=== PATIENT | female | born 1960 | race Caucasian/White ===

== ENCOUNTER 2021-08-03 15:29 | Outpatient (CLI) | payer MEDICARE, MEDICAID, SELFPAY ==
--- NOTE | 2021-08-03 15:47 | XRR_ITS ---
PROCEDURE INFORMATION: Exam: XR Right Shoulder Exam date and time: 08/03/2021 3:47 PM Age: 60 years old Clinical indication: Pain; Shoulder; Right; Patient HX: No known injury; Additional info: Chronic right shoulder pain TECHNIQUE: Imaging protocol: XR Right shoulder. Views: 2 or more views. COMPARISON: CR Chest 1 [place] [id number] 05/24/2018 12:49 AM FINDINGS: Bones/joints: Osseous structures are intact. Negative for fracture. Joint spaces are preserved. Soft tissues: Normal. XR/XR shoulder RT min 2V* [id number] IMPRESSION: Unremarkable radiographs of the right shoulder.
== END 2021-08-03 15:30 | disposition home or self-care (01) ==
PROVIDERS: PCP Family Medicine; Visit Provider Family Medicine
DX: M79.601 Pain in right arm (principal)
CPT/HCPCS: 73030

== ENCOUNTER 2021-08-19 08:52 | Outpatient (CLI) | payer MEDICARE, MEDICAID, SELFPAY ==
--- NOTE | 2021-08-19 09:14 | MM_ITS ---
WS: [id number] BILATERAL 3D TOMOSYNTHESIS DIGITAL DIAGNOSTIC MAMMOGRAPHY WITH CAD CLINICAL INFORMATION: right breast pain COMPARISON: April 05, 2011 TECHNIQUE: Bilateral CC, MLO, and ML views. FINDINGS: Scattered fibroglandular densities bilaterally. Punctate and lucent centered calcifications. Asymmetr ic density near the 12:00 position only seen on the MLO view compresses out on the spot compression i mages. A few small subareolar ovoid densities similar to previous. Ultrasound RIGHT breast is pending . LEFT breast is unremarkable. ULTRASOUND BREAST RIGHT TECHNIQUE: Ultrasound RIGHT breast focused area of concern. CLINICAL INFORMATION: right breast pain COMPARISON: RIGHT FINDINGS: Ultrasound area of patient concern. RIGHT axilla demonstrates normal lymph nodes. Additional ultrasou nd about the nipple demonstrates incidental simple cyst superior to the nipple measuring 8.1 x 6.9 x 5.5 mm. Adjacent dilated duct with intraductal debris adjacent to the nipple measuring 8.0 x 8.5 x 5. 3 mm. Findings are probably benign. No other abnormalities. MM/[place] [id number] IMPRESSION: BI-RADS: 3-Probably Benign FOLLOW UP: 6 Month Follow-up Recommend 6 month RIGHT diagnostic mammography and ultrasound with specific att ention to the dilated duct with intraductal debris.
== END 2021-08-19 08:53 | disposition home or self-care (01) ==
LOC: RAD 08:53
PROVIDERS: PCP Family Medicine; Visit Provider Family Medicine
DX: N64.4 Mastodynia (principal)
CPT/HCPCS: 76642; 77062

== ENCOUNTER → 2021-08-31 13:59 | Outpatient (BNVA) | payer MEDICARE, MEDICAID, SELFPAY | PROVIDERS: PCP Family Medicine; Visit Provider Family Medicine | DX: M79.601 Pain in right arm (principal); J44.9 Chronic obstructive pulmonary disease, unspecified; E03.9 Hypothyroidism, unspecified; R06.01 Orthopnea; I25.10 Atherosclerotic heart disease of native coronary artery without angina pectoris | CPT/HCPCS: 80053; 80061; 83880; 84443; 85025 ==

== ENCOUNTER → 2021-11-01 11:47 | Outpatient (BNVA) | payer MEDICARE, MEDICAID, SELFPAY | PROVIDERS: PCP Family Medicine; Visit Provider Family Medicine | DX: R06.01 Orthopnea (principal); R60.0 Localized edema | CPT/HCPCS: 80048 ==

== ENCOUNTER 2022-02-24 12:40 | Outpatient (CLI) | payer MEDICARE, MEDICAID, SELFPAY ==
--- NOTE | 2022-02-24 13:06 | MM_ITS ---
WS: [id number] RIGHT 3D TOMOSYNTHESIS DIGITAL MAMMOGRAPHY WITH CAD CLINICAL INFORMATION: abnormal mammogram right breast, 6 MO F/U HISTORY: Six-month Follow-up COMPARISON: August 19, 2021 TECHNIQUE: 3 views of the right breast were obtained. FINDINGS: Scattered fibroglandular densities bilaterally. Punctate and lucent centered calcifications. A few sm all subareolar ovoid densities similar to previous. Ultrasound RIGHT breast is pending. ULTRASOUND BREAST RIGHT TECHNIQUE: Ultrasound right breast focused area of concern. CLINICAL INFORMATION: abnormal mammogram right breast, 6 MO F/U FINDINGS: Ultrasound RIGHT breast at the areola. 7 x 8 x 5 mm cyst posterior to the nipple with dilated ducts i nternal debris but no focal mass. This is stable in appearance since August 19, 2021. Recommend additi onal six-month follow-up to confirm stability. MM/[place] [id number] IMPRESSION: BI-RADS: 3-Probably Benign FOLLOW UP: 6 Month Follow-up Recommend 6 month follow-up RIGHT breast diagnostic mammography and ultrasound to confirm stability.
== END 2022-02-24 12:41 | disposition home or self-care (01) ==
LOC: RAD 12:41
PROVIDERS: PCP Family Medicine; Visit Provider Family Medicine
DX: R92.8 Other abnormal and inconclusive findings on diagnostic imaging of breast (principal)
CPT/HCPCS: 76642; 77061

== ENCOUNTER 2022-03-15 06:50 | Outpatient (CLI) | payer MEDICARE, MEDICAID, SELFPAY ==
--- NOTE | 2022-03-15 | USCV_ITS ---
Flor Du Age: 61 Gender: F : 1960 Exam Date: 03/15/2022 11:12 Ordering Phys: Enid Morocho DO Technologist: Balbir Rosales [place] [facility] [place]: Chronic obstructive pulmonary disease BP: 128 / 76 HR: 68 Rhythm: Sinus Technical Quality: Technically difficult study MEASUREMENTS (Male / Female) Normal Values 2D ECHO LV Diastolic Diameter PLAX 4.2 cm 4.2 - 5.9 / 3.9 - 5.3 cm LV Systolic Diameter PLAX 2.6 cm IVS Diastolic Thickness 1.0 cm 0.6 - 1.0 / 0.6 - 0.9 cm IVS Systolic Thickness 1.4 cm LVPW Diastolic Thickness 0.9 cm 0.6 - 1.0 / 0.6 - 0.9 cm LVPW Systolic Thickness 1.6 cm LVOT Diameter 2.0 cm LV Ejection Fraction 2D Teich 67.2 % LV Ejection Fraction MOD 2C 65.0 % LV Ejection Fraction 2C AL 66.5 % LA Diameter 3.4 cm LA Width 4.0 cm LA Height 4.5 cm RA Width 3.4 cm RA Height 3.7 cm Aorta at Sinotubular Diameter 2.6 cm IVC Diameter 1.7 cm M-MODE Aortic Annulus Diameter 2.5 cm LA Ao Ratio MM 1.5 MV E Point Septal Separation 0.5 cm DOPPLER AV Peak Velocity 125.2 cm/s LVOT Peak Velocity 123.4 cm/s AV Area Cont Eq vti 2.9 cm squared AV Area Cont Eq pk 3.1 cm squared MV Peak Velocity 132.0 cm/s MV Area PHT 5.4 cm squared Mitral E to A Ratio 0.8 MV E' Velocity 50.5 cm/s Mitral E to MV E' Ratio 6.7 Mitral E to LV E' Lateral Ratio 7.0 Mitral E to LV E' Septal Ratio 6.5 Right Atrial Pressure 3.0 mmHg PV Peak Velocity 89.0 cm/s RV Acceleration Time 0.1 s RV Ejection Time 0.3 s RV AcT/ET 0.4 FINDINGS Left Ventricle Normal left ventricular size and systolic function, EF 67 %. No regional wall motion abnormalities. Right Ventricle The right ventricle is normal in size and function. Right Atrium The right atrium is normal in size. Left Atrium The left atrium is normal in size. Mitral Valve Normal gross abnormalities noted Aortic Valve Normal gross abnormalities noted Tricuspid Valve Normal gross abnormalities noted Pulmonic Valve Normal gross abnormalities noted Pericardium Normal pericardium without effusion. Aorta Normal ascending aorta dimension. IVC Normal inferior vena cava. CONCLUSIONS Normal left ventricular size and systolic function, EF 67 %. No regional wall motion abnormalities. Normal chamber sizes. No significant valvular lesions. No intracardiac masses. No pericardial effusion. No similar previous studies are available for comparison Dr Phuc Haque MD [facility] (Electronically Signed) Final Date: 15 March 2022 23:05 S
--- NOTE | 2022-03-15 | ECG_ITS ---
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 Interpretive Statements NAME OF STUDY: LEXISCAN SESTAMIBI STRESS TEST INDICATION: Dyspnea on Exertion PROCEDURE: At the baseline, the blood pressure was 132/65 mmHg with a heart rate of 64 beats per min. The electrocardiogram showed sinus rhythm, normal axis with normal ST and T's. The Lexiscan was infused over a period of 20 seconds. A total of 0.4 milligrams of Lexiscan was infused. The stress phase was continued for a total of 5 minutes. Heart rate at the end of the stress phase was 74 bpm with a blood pressure of 109/59 mmHg. The EKG at the peak infusion revealed sinus rhythm with no significant ST-T wave changes. The study was terminated due to protocol completion. Sestamibi was injected 20 seconds after the Lexiscan infusion. Blood pressure at the end of the recovery phase was 109/59 mmHg with a heart rate of 71 beats per minute. CONCLUSION: 1. Normal EKG response to LexiScan infusion. 2. No LexiScan induced chest pain or cardiac arrhythmia. 3. Normal blood pressure and heart rate response. 4. Sestamibi/sestamibi perfusion scan pending; see separate report. Electronically Signed On 03-16-2022 17:39:09 CDT by Valentine Ram M.D. [id number]
[2022-03-15 07:15] VITALS: BMI 38.4
--- NOTE | 2022-03-15 07:24 | NMCV_ITS ---
NM sirena perf SPECT r/s* [id number] Flor Du Age: 61 Gender: F : 1960 Exam Date: 03/15/2022 07:24 Ordering Phys: Enid Morocho DO Technologist: DEMETRIS Garcia Exam Location: [facility] Indications: SHORTNESS OF BREATH STRESS TEST Please see separate stress test report in [facility] for full findings IMAGE PROTOCOL Rest/Stress 1 Lexiscan Day Radiopharmaceutical Dose (mCi) Administration Site Administered by Rest: Tc-99m 10.7 IV DEMETRIS Trotter Sestamibi Stress:Tc-99m 32.7 IV DEMETRIS Trotter Sestamibi Rest: 15-Mar-2022 60 Discovery 630 Stress: 15-Mar-2022 30 Discovery 630 0.4mg Lexiscan. Images obtained in supine and prone position. SPECT RESULTS Technical Quality: Excellent Raw Data Analysis: Normal Image Corrections: No attenuation or motion correction applied Summed Stress Score: 1 Summed Rest Score: 3 Summed Difference Score: 0 PERFUSION FINDINGS Small sized perfusion abnormality of mild severity of apical septal and apical pantoja on rest with improved tracer uptake on stress images. FUNCTIONAL RESULTS (calculated via Gated SPECT) Stress Image LV EF (%): 76 Stress EDV (mL):82 TID: 1.17 Stress ESV (mL):20 FUNCTIONAL FINDINGS: The left ventricle is normal in size. Transient Ischemia Dilatation of 1.2. There is normal left ventricular systolic function. The left ventricular ejection fraction is normal with a value of 76%. There is normal left ventricular wall thickening. Normal end-diastolic and end-systolic volumes. IMPRESSIONS 1. Myocardial perfusion imaging is normal. Attenuation artifact in apical septal and apical pantoja. 2. Overall left ventricular systolic function is normal without regional wall motion abnormalities, LVEF=76%. 3. EKG portion of the study will be reported separately. Valentine Ram MD (Electronically Signed) Final Date: 18 March 2022 14:19 S
[2022-03-15] MEDS: regadenoson 0.4 Mg/5 ml Syringe IVP (09:24)
[2022-03-15 09:38] VITALS: BP 128/72; PULSE 83
== END 2022-03-15 06:51 | disposition home or self-care (01) ==
LOC: CDL 06:52
PROVIDERS: PCP Family Medicine; Visit Provider Family Medicine
DX: J44.9 Chronic obstructive pulmonary disease, unspecified (principal); R06.09 Other forms of dyspnea; R06.02 Shortness of breath
CPT/HCPCS: 78452; 93017; 93306; A9500; J2785

== ENCOUNTER → 2022-05-26 14:50 | Outpatient (BNVA) | payer MEDICARE, MEDICAID, SELFPAY | PROVIDERS: PCP Family Medicine; Visit Provider Internal Medicine Cardiovascular Disease | DX: R07.89 Other chest pain (principal); R06.00 Dyspnea, unspecified; R60.0 Localized edema; J43.1 Panlobular emphysema; I25.10 Atherosclerotic heart disease of native coronary artery without angina pectoris; F17.210 Nicotine dependence, cigarettes, uncomplicated; R00.0 Tachycardia, unspecified | CPT/HCPCS: 93005; 99205 ==

== ENCOUNTER 2022-05-31 09:48 | Outpatient (CLI) | payer MEDICARE, MEDICAID, SELFPAY ==
[2022-05-31 10:45] LABS: D Dimer 0.48 ug/mIFEU (0-0.59)
[2022-05-31 11:00] LABS: NT Pro B Type Natriuretic Pept 29 pg/mL (0-125)
== END 2022-05-31 09:49 | disposition home or self-care (01) ==
LOC: LAB 09:54
PROVIDERS: PCP Family Medicine; Visit Provider Internal Medicine Cardiovascular Disease
DX: R06.00 Dyspnea, unspecified (principal); R06.02 Shortness of breath
CPT/HCPCS: 36415; 83880; 85378

== ENCOUNTER → 2022-08-04 08:46 | Outpatient (BNVA) | payer MEDICARE, MEDICAID, SELFPAY | PROVIDERS: PCP Family Medicine; Visit Provider Family Medicine | DX: E03.9 Hypothyroidism, unspecified (principal); J43.1 Panlobular emphysema; F17.219 Nicotine dependence, cigarettes, with unspecified nicotine-induced disorders; M79.601 Pain in right arm; R60.0 Localized edema | CPT/HCPCS: 84443 ==

== ENCOUNTER 2022-08-26 08:39 | Outpatient (CLI) | payer MEDICARE, MEDICAID, SELFPAY ==
--- NOTE | 2022-08-26 09:15 | CT_ITS ---
WS: [id number] LDCT LUNG CANCER SCREENING TECHNIQUE: Noncontrast CT of the chest with coronal and sagittal reformatted images. CLINICAL INFORMATION: initial COMPARISON: None. DLP: 80.17 mGy.cm DIvol: Mean CTDIvol: 1.60 (mGy) All CT scans at [facility] use at least one of these dose optimization techniques: automat ed exposure control; mA and/or kV adjustment per patient size (includes targeted exams where dose is matched to clinical indication); or iterative reconstruction. FINDINGS: 5 mm noncalcified nodule RIGHT lower lobe. Noncalcified 6 mm nodule LEFT lower lobe along t he fissure. A few additional tiny subcentimeter nodules. Normal caliber thoracic aorta. Aortic calcification. No mediastinal or hilar lymphadenopathy. Coronar y calcification. No mediastinal or hilar lymphadenopathy. No axillary lymphadenopathy. Cholecystectomy clips. Adrenal glands are normal. CT/CT lung screening [id number] IMPRESSION: LUNG-RADS: 2-Benign Appearance or Behavior FOLLOW UP: 12 Month: Continue annual screening with LDCT
== END 2022-08-26 08:40 | disposition home or self-care (01) ==
LOC: RAD 08:41
PROVIDERS: PCP Family Medicine; Visit Provider Family Medicine
DX: Z12.2 Encounter for screening for malignant neoplasm of respiratory organs (principal); F17.219 Nicotine dependence, cigarettes, with unspecified nicotine-induced disorders; J43.1 Panlobular emphysema
CPT/HCPCS: 71271

== ENCOUNTER → 2022-10-10 10:35 | Outpatient (BNVA) | payer MEDICARE, MEDICAID, SELFPAY | PROVIDERS: PCP Family Medicine; Visit Provider Internal Medicine Pulmonary Disease | DX: J43.1 Panlobular emphysema (principal); F17.219 Nicotine dependence, cigarettes, with unspecified nicotine-induced disorders; Z91.09 Other allergy status, other than to drugs and biological substances; Z79.51 Long term (current) use of inhaled steroids | CPT/HCPCS: 36415; 82785; 85025; 86003; 99204 ==

== ENCOUNTER 2022-12-01 11:19 | Outpatient (CLI) | payer MEDICARE, MEDICAID, SELFPAY ==
--- NOTE | 2022-12-01 11:29 | XR_ITS ---
WS: [id number] XR cervical spine 3V* [id number] REASON FOR EXAM: Fall FINDINGS: Anterior plate and screw fixation of C5-C6 which appear to be fused. Fusion site appears unchanged co mpared to 01/26/2018. Compared to the previous examination of 01/26/2018 there is now 3 mm of anterolisthesis of C3 on C4. Osteophytosis at the narrowed C6-C7 interspace has increased. XR/XR cervical spine 3V* [id number] IMPRESSION: Postoperative cervical spine with interval changes of degenerative spondylosis as above.
== END 2022-12-01 11:20 | disposition home or self-care (01) ==
PROVIDERS: PCP Family Medicine; Visit Provider Nurse Practitioner Family
DX: S19.9XXA Unspecified injury of neck, initial encounter (principal); W19.XXXA Unspecified fall, initial encounter; Z98.1 Arthrodesis status; M47.812 Spondylosis without myelopathy or radiculopathy, cervical region
CPT/HCPCS: 72040

== ENCOUNTER → 2022-12-08 14:56 | Outpatient (BNVA) | payer MEDICARE, MEDICAID, SELFPAY | PROVIDERS: PCP Family Medicine; Visit Provider Internal Medicine Cardiovascular Disease | DX: R07.89 Other chest pain (principal); R06.00 Dyspnea, unspecified; I25.10 Atherosclerotic heart disease of native coronary artery without angina pectoris; J43.1 Panlobular emphysema; R03.0 Elevated blood-pressure reading, without diagnosis of hypertension; F17.210 Nicotine dependence, cigarettes, uncomplicated; Z79.82 Long term (current) use of aspirin | CPT/HCPCS: 99214 ==

== ENCOUNTER → 2022-12-15 11:19 | Outpatient (BNVA) | payer MEDICARE, MEDICAID, SELFPAY | PROVIDERS: PCP Family Medicine; Visit Provider Family Medicine | DX: E03.9 Hypothyroidism, unspecified (principal); I25.10 Atherosclerotic heart disease of native coronary artery without angina pectoris | CPT/HCPCS: 80053; 80061; 84443 ==

== ENCOUNTER 2022-12-17 23:29 | Emergency (ER) | payer MEDICARE, MEDICAID, SELFPAY ==
[2022-12-17 23:41] VITALS: BP 155/91; PULSE 102; RESP 18; TEMP 36.6; O2SAT 96; BMI 36.8
--- NOTE | 2022-12-17 23:55 | W.ED.NAVMDI ---
HPI - Nausea/Vomiting/Diarrhea General: Chief complaint: Nausea/Vomiting/Diarrhea Stated complaint: ABD Pain Time Seen by Provider: 12/17/22 23:54 History of Present Illness: 62-year-old female comes in today with complaints of diarrhea since Monday. Patient reports on Monday she had 2 episodes of emesis and since then she has had diarrhea. Patient does have a history of colon resection due to diverticulitis. Patient reports no significant blood in the stools. Patient reports feeling rundown and dehydrated. Patient reports holding her furosemide since having the diarrhea. Review of Systems General: Reports: 10 or more systems reviewed and unremarkable except in HPI and below GI: Reports: diarrhea PFSH ED PFSH: Medical History ASHD (arteriosclerotic heart disease) CAD (coronary artery disease) COPD (chronic obstructive pulmonary disease) Enrolled in chronic care management GERD (gastroesophageal reflux disease) Hypothyroid Surgical History H/O: hysterectomy History of cholecystectomy History of colon surgery History of foot surgery History of neck surgery Family History Mother CAD (coronary artery disease) VT x 2 Chronic kidney disease (CKD) Cancer Diabetes Stroke Father CAD (coronary artery disease) PCI x 3 Dementia Diabetes Brother Cancer Lung disease Brother Cancer Lung disease Daughter Cancer Denies family history of Clotting disorder Suicide Anesthesia complication Bleeding disorder Social History Smoking and tobacco status: current every day smoker cigarettes Packs smoked per day: 2 Years cigarettes smoked: 50 [ Other cigarette details: Started at age 11.] Alcohol intake: never Substance/Drug Use: current Other substance/drug use details: Gummies Physical Exam Const: COMMON NORMALS: alert HENMT: COMMON NORMALS: normocephalic HEAD & SCALP: normocephalic Neck/C-Spine: COMMON NORMALS: full ROM Chest: COMMONS NORMALS: normal palpation of entire chest wall Cardio: COMMON NORMALS: regular rate and regular rhythm RATE: regular rate RHYTHM: regular rhythm GI: COMMON NORMALS: Soft to palpation AUSCULTATION: Yes normoactive bowel sounds PALPATION: Yes Soft to palpation Extremity: COMMON NORMALS: no pedal edema Neuro: SENSORIUM/ORIENTATION: Yes alert Skin: COMMON NORMALS: turgor normal GENERAL SKIN EXAM: turgor normal Course Vital Signs: Vital signs: Vital Signs Temperature 97.8 F 12/17/22 23:41 Pulse Rate 83 12/18/22 00:10 Respiratory Rate 16 12/18/22 00:10 Blood Pressure 141/71 12/18/22 00:10 Pulse Oximetry 93 12/18/22 00:10 MDM - Nausea/Vomiting/Diarrhea Medical Decision Making Patient comes in today for feeling of malaise and persistent diarrhea for about 5 days. On exam patient bowel sounds are active abdomen soft. Vital signs are normal except for some mild elevation in blood pressure. Patient is afebrile. Differential diagnosis includes viral syndrome, dehydration, electrolyte imbalance, bowel obstruction, abscess. CBC and CMP were unremarkable except for some mild chronic kidney disease. Urinalysis was unremarkable. CT of the abdomen pelvis noted no significant abnormalities. Patient was given 2 tablets of Lomotil to help control her diarrhea. Patient was instructed to drink plenty of fluids and follow-up with primary care. Patient reported understanding and agreed to plan. Lab Data 12/17/22 23:59 12/17/22 23:59 Radiology Impressions Abdomen/Pelvis CT 12/18/22 00:02 IMPRESSION: Negative for acute abdominopelvic pathology. Laboratory Results WBC 9.4 10^3/uL (4.0-10.0) 12/17/22 23:59 RBC 4.24 10^6/uL (4.1-5.3) 12/17/22 23:59 Hgb 11.6 g/dL (11.5-15.3) 12/17/22 23:59 Hct 36.1 % (37.0-47.0) L 12/17/22 23:59 MCV 85.1 fl (81-99) 12/17/22 23:59 MCH 27.4 pg (28.0-34.0) L 12/17/22 23:59 MCHC 32.1 g/dL (30.0-36.0) 12/17/22 23:59 RDW 14.8 % (12.1-15.1) 12/17/22 23:59 Plt Count 346 10^3/cmm (130-400) 12/17/22 23:59 MPV 9.8 fL (7.4-10.4) 12/17/22 23:59 Neut % (Auto) 49.6 % 12/17/22 23:59 Lymph % (Auto) 40.6 % 12/17/22 23:59 Hidalgo % (Auto) 6.9 % 12/17/22 23:59 Eos % (Auto) 2.1 % 12/17/22 23:59 Baso % (Auto) 0.5 % 12/17/22 23:59 Neut # (Auto) 4.67 10^3/uL (1.8-7.7) 12/17/22 23:59 Lymph # (Auto) 3.8 10^3/uL (0.8-4.8) 12/17/22 23:59 Hidalgo # (Auto) 0.7 10^3/uL (0.2-0.9) 12/17/22 23:59 Eos # (Auto) 0.2 10^3/uL (0.0-0.8) 12/17/22 23:59 Baso # (Auto) 0.1 10^3/uL (0.0-0.1) 12/17/22 23:59 Nucleated RBC % (auto) 0 % 12/17/22 23:59 Nucleated RBCs # 0.0 /100WBC 12/17/22 23:59 Sodium 139 mmol/L (136-145) 12/17/22 23:59 Potassium 3.7 mmol/L (3.5-5.1) 12/17/22 23:59 Chloride 106 mmol/L (98-107) 12/17/22 23:59 Carbon Dioxide 22 mmol/L (22-29) 12/17/22 23:59 Anion Gap 14.7 (5-19) 12/17/22 23:59 BUN 19 mg/dL (8-23) 12/17/22 23:59 Creatinine 1.1 mg/dL (0.5-0.9) H 12/17/22 23:59 GFR Calculation 50.3 mL/min (90-130) L 12/17/22 23:59 Glucose 109 mg/dL (65-115) 12/17/22 23:59 Calculated Osmolality 291 mOsm/kg (285-295) 12/17/22 23:59 Calcium 8.9 mg/dL (8.5-10.5) 12/17/22 23:59 Total Bilirubin 0.2 mg/dL (0.15-1.2) 12/17/22 23:59 AST 21 U/L (0-32) 12/17/22 23:59 ALT 26 U/L (0-33) 12/17/22 23:59 Alkaline Phosphatase 135 U/L (35-105) H 12/17/22 23:59 Total Protein 6.9 g/dL (6.6-8.7) 12/17/22 23:59 Albumin 4.1 g/dL (3.5-5.2) 12/17/22 23:59 Globulin 2.8 g/dL (1.3-4.6) 12/17/22 23:59 Lipase 38 U/L (13-60) 12/17/22 23:59 Urine Color Yellow (Yellow) 12/18/22 00:33 Urine Appearance Cloudy (CLEAR) A 12/18/22 00:33 Urine pH 5 (5-7) 12/18/22 00:33 Ur Specific Ballinger 1.015 (1.005-1.030) 12/18/22 00:33 Urine Protein Trace (Negative) 12/18/22 00:33 Urine Glucose (UA) Norm (Normal) 12/18/22 00:33 Urine Ketones Negative (Negative) 12/18/22 00:33 Urine Blood Neg (Negative) 12/18/22 00:33 Urine Nitrate Negative (Negative) 12/18/22 00:33 Urine Bilirubin Neg (Negative) 12/18/22 00:33 Urine Urobilinogen Norm mg/dL (Negative) 12/18/22 00:33 Ur Leukocyte Esterase Trace (Negative) H 12/18/22 00:33 Urine RBC 0-4 /hpf (0-2) H 12/18/22 00:33 Urine WBC 0-4 /hpf (0-5) H 12/18/22 00:33 Ur Squamous Epith Cells 25-40 /hpf (0-5) H 12/18/22 00:33 Amorphous Sediment Not Reportable 12/18/22 00:33 Urine Bacteria 2+ /hpf (NONE) H 12/18/22 00:33 Discharge Plan Discharge Patient Disposition: Home Clinical Impression: Diarrhea in adult patient Condition: Stable Prescriptions: New Lomotil 2.5-0.025 mg tablet 1 tab PO Q8H PRN (Reason: diarrhea) Qty: 7 0RF No Action albuterol sulfate [ProAir HFA] 90 mcg/actuation HFA aerosol inhaler 2 puff INHALATION Q6H PRN (Reason: shortness of breath or wheezing) Qty: 8.5 5RF nitroglycerin [Nitrostat] 0.4 mg tablet, sublingual 0.4 mg SUBLINGUAL Q5M PRN (Reason: chest pain) 42 Days Qty: 30 5RF aspirin [Adult Aspirin Regimen] 81 mg tablet,delayed release (DR/EC) 81 mg PO DAILY furosemide 40 mg tablet See Rx Instructions .ROUTE .COMPLEX Qty: 90 1RF Dose Instruction: TAKE 1 TABLET BY MOUTH EVERY MORNING Rx Instructions: TAKE 1 TABLET BY MOUTH EVERY MORNING potassium chloride 20 mEq tablet,ER particles/crystals See Rx Instructions .ROUTE .COMPLEX Qty: 90 1RF Dose Instruction: TAKE 1 TABLET BY MOUTH EVERY DAY Rx Instructions: TAKE 1 TABLET BY MOUTH EVERY DAY omeprazole 40 mg capsule,delayed release(DR/EC) See Rx Instructions .ROUTE .COMPLEX Qty: 90 1RF Dose Instruction: take 1 capsule BY MOUTH EVERY DAY Rx Instructions: take 1 capsule BY MOUTH EVERY DAY gabapentin [Neurontin] 300 mg capsule 300 mg PO TID Qty: 270 1RF Trelegy Ellipta 100-62.5-25 mcg blister with device See Rx Instructions .ROUTE .COMPLEX Qty: 60 5RF Dose Instruction: INHALE 1 PUFF EVERY 24 HOURS Rx Instructions: INHALE 1 PUFF EVERY 24 HOURS levothyroxine [Synthroid] 50 mcg tablet 50 mcg PO DAILY Qty: 90 1RF Discharge Orders: Discharge ED (Routine); Ordered 12/18/22 Ordered By: Jose Garcia Referrals: Enid Morocho DO [Primary Care Provider] - Discharge Diet: Usual diet Discharge Activity: Increase activity as tolerated Patient Instructions: Acute Diarrhea (ED) Activity Restrictions/Additional Instructions: Drink plenty of water and fluids to stay well-hydrated. While having diarrhea try to consume some electrolyte solution like Pedialyte or clear Gatorade solution in order to maintain normal salts in the body. Increase diet slowly over a few days. Follow-up with primary care for further instruction and evaluation. Return to ER for new concerns such as high fever, severe abdominal pain, inability to hold fluids down. Coding Level of Care Code ED Bonding Equipment Operator for Armando Cheatham
--- NOTE | 2022-12-18 00:02 | CTR_ITS ---
PROCEDURE INFORMATION: Exam: CT Abdomen And Pelvis With Contrast Exam date and time: 12/18/2022 12:14 AM Age: 62 years old Clinical indication: Prior surgery; Surgery date: 6+ months; Surgery type: Gb. Colon resection. Hysto. Csection. Patient HX: C/O diarrhea x 1 week. ; Additional info: Diarrhea, HX of colon resection TECHNIQUE: Imaging protocol: Computed tomography of the abdomen and pelvis with contrast. Radiation optimization: All CT scans at this facility use at least one of these dose optimization techniques: automated exposure control; mA and/or kV adjustment per patient size (includes targeted exams where dose is matched to clinical indication); or iterative reconstruction. Contrast material: OMNI 350; Contrast volume: 100 ml; Contrast route: INTRAVENOUS (IV); REPORTING DATA: Count of CT and Cardiac NM exams in prior 12 months: This patient has received 2 known CTs and 0 known cardiac nuclear medicine studies in the 12 months prior to the current study. COMPARISON: CT abdomen pelvis w con* [id number] 05/23/2018 10:57 PM RADIATION DOSE METRICS: Total DLP (mGy-cm): 972.23 FINDINGS: Liver: Normal. No mass. Gallbladder and bile ducts: Cholecystectomy. Nondilated biliary system. Pancreas: Normal. No ductal dilation. Spleen: Normal. No splenomegaly. Adrenal glands: Normal. No mass. Kidneys and ureters: Normal. No hydronephrosis. Stomach and bowel: Unremarkable. No obstruction. No mucosal thickening. Mild severity diverticulosis coli. Appendix: No evidence of appendicitis. Intraperitoneal space: Unremarkable. No free air. No significant fluid collection. Vasculature: Unremarkable. No abdominal aortic aneurysm. Lymph nodes: Unremarkable. No enlarged lymph nodes. Urinary bladder: Unremarkable as visualized. Reproductive: Hysterectomy. Bones/joints: Unremarkable. No acute fracture. Severe multilevel degenerative disc disease changes at L3-L4, L4-L5, L5-S1. Soft tissues: Unremarkable. CT/CT abdomen pelvis w con* [id number] IMPRESSION: Negative for acute abdominopelvic pathology.
[2022-12-18] MEDS: sodium chloride 0.9% 500 ML 999 ML IV (00:04)
[2022-12-18 00:06] LABS: Basophils # 0.1 10^3/uL (0.0-0.1); Basophils % 0.5 %; Eosinophils # 0.2 10^3/uL (0.0-0.8); Eosinophils % 2.1 %; Hematocrit 36.1 % (37.0-47.0); Hemoglobin 11.6 g/dL (11.5-15.3); Lymphocytes # 3.8 10^3/uL (0.8-4.8); Lymphocytes % 40.6 %; Mean Corpuscular HGB Conc 32.1 g/dL (30.0-36.0); Mean Corpuscular Hemoglobin 27.4 pg (28.0-34.0); Mean Corpuscular Volume 85.1 fl (81-99); Mean Platelet Volume 9.8 fL (7.4-10.4); Monocytes # 0.7 10^3/uL (0.2-0.9); Monocytes % 6.9 %; Neutrophils # 4.67 10^3/uL (1.8-7.7); Neutrophils % 49.6 %; Nucleated Red Blood Cells % 0 %; Platelet Count 346 10^3/cmm (130-400); Red Blood Count 4.24 10^6/uL (4.1-5.3); Red Cell Distribution Width 14.8 % (12.1-15.1); White Blood Count 9.4 10^3/uL (4.0-10.0)
[2022-12-18 00:10] VITALS: BP 141/71; PULSE 83; RESP 16; O2SAT 93
[2022-12-18] MEDS: iohexol 350 mg/mL 500 mL Btl (per mL) IV (00:18)
[2022-12-18 00:29] LABS: Alanine Aminotransferase 26 U/L (0-33); Albumin Level 4.1 g/dL (3.5-5.2); Alkaline Phosphatase 135 U/L (35-105); Anion Gap 14.7 (5-19); Aspartate Amino Transferase 21 U/L (0-32); Blood Urea Nitrogen 19 mg/dL (8-23); Calcium 8.9 mg/dL (8.5-10.5); Carbon Dioxide 22 mmol/L (22-29); Chloride 106 mmol/L (98-107); Globulin 2.8 g/dL (1.3-4.6); Glomerular Filtration Rate 50.3 mL/min (90-130); Glucose 109 mg/dL (65-115); Lipase 38 U/L (13-60); Osmolality Calculated 291 mOsm/kg (285-295); Potassium 3.7 mmol/L (3.5-5.1); Sodium 139 mmol/L (136-145); Total Bilirubin 0.2 mg/dL (0.15-1.2); Total Protein 6.9 g/dL (6.6-8.7)
[2022-12-18 00:30] LABS: Creatinine Clr Calc Pharmacy 60.1294
[2022-12-18 00:54] LABS: Urine Appearance Cloudy (CLEAR); Urine Color Yellow (Yellow); pH Urine 5 (5-7)
[2022-12-18 00:55] LABS: Add Urine Microscopic? YES; Bilirubin Urine Neg (Negative); Blood Urine Neg (Negative); Glucose Urine UA Norm (Normal); Ketones Urine Negative (Negative); Leukocyte Esterase Urine Trace (Negative); Nitrate Urine Negative (Negative); Protein Urine Trace (Negative); Specific Gravity, Urine 1.015 (1.005-1.030); Urobilinogen Urine Norm (Negative)
[2022-12-18 00:56] LABS: Bacteria Urine 2+ /hpf; RBC Urine 0-4 /hpf (0-2); Squamous Epithelial Cell Urine 25-40 /hpf (0-5)
[2022-12-18 00:57] LABS: WBC Urine 0-4 /hpf (0-5)
[2022-12-18] MEDS: diphenoxylate/atropine Tablet 2 TAB PO (01:22)
[2022-12-18 01:44] VITALS: BP 141/71; PULSE 83; RESP 16; TEMP 36.6; O2SAT 93
== END 2022-12-18 01:45 | disposition home or self-care (01) ==
PROVIDERS: Emergency Medicine; Emergency Provider Nurse Practitioner Family; PCP Family Medicine
DX: R19.7 Diarrhea, unspecified (principal); Z79.82 Long term (current) use of aspirin; F17.210 Nicotine dependence, cigarettes, uncomplicated; I25.10 Atherosclerotic heart disease of native coronary artery without angina pectoris; J44.9 Chronic obstructive pulmonary disease, unspecified
CPT/HCPCS: 74177; 80053; 81001; 83690; 85025; 96360; 99285; J7040; Q9967

== ENCOUNTER → 2023-06-29 10:06 | Outpatient (BNVA) | payer MEDICARE, MEDICAID, SELFPAY | PROVIDERS: PCP Family Medicine; Visit Provider Family Medicine | DX: R60.0 Localized edema (principal); E03.9 Hypothyroidism, unspecified | CPT/HCPCS: 80053; 84443 ==

== ENCOUNTER → 2023-07-12 10:10 | Outpatient (BNVA) | payer MEDICARE, MEDICAID, SELFPAY | PROVIDERS: PCP Family Medicine; Visit Provider Podiatrist Foot & Ankle Surgery | DX: L84 Corns and callosities (principal); Q82.8 Other specified congenital malformations of skin | CPT/HCPCS: 99203 ==

== ENCOUNTER 2023-08-30 06:43 | Outpatient (CLI) | payer MEDICARE, MEDICAID, SELFPAY ==
--- NOTE | 2023-08-30 07:00 | CT_ITS ---
WS: [id number] LDCT LUNG CANCER SCREENING TECHNIQUE: Noncontrast CT of the chest with coronal and sagittal reformatted images. CLINICAL INFORMATION: Lung Cancer Follow up COMPARISON: 08/26/2022 DLP: 113.22 mGy.cm DIvol: Mean CTDIvol: 2.90 (mGy) All CT scans at [facility] use at least one of these dose optimization techniques: automat ed exposure control; mA and/or kV adjustment per patient size (includes targeted exams where dose is matched to clinical indication); or iterative reconstruction. FINDINGS: 5 mm noncalcified nodule RIGHT lower lobe. Noncalcified 6 mm nodule LEFT lower lobe along the fissu re. A few additional scattered subcentimeter nodules and subpleural nodules. No new suspicious pulmon andre parenchymal opacities. Normal caliber thoracic aorta. Aortic calcification. No mediastinal or hilar lymphadenopathy. Coronary calcification. No axillary lymphadenopathy. Cholecy stectomy clips. Adrenal glands are normal. IMPRESSION: CT/CT lung screening [id number] LUNG-RADS: 2-Benign Appearance or Behavior FOLLOW UP: 12 Month: Continue annual screening with LDCT
== END 2023-08-30 06:44 | disposition home or self-care (01) ==
LOC: RAD 06:43
PROVIDERS: PCP Family Medicine; Visit Provider Internal Medicine Pulmonary Disease
DX: Z12.2 Encounter for screening for malignant neoplasm of respiratory organs (principal); F17.219 Nicotine dependence, cigarettes, with unspecified nicotine-induced disorders; J44.9 Chronic obstructive pulmonary disease, unspecified; R91.8 Other nonspecific abnormal finding of lung field
CPT/HCPCS: 71271

== ENCOUNTER → 2023-09-26 13:31 | Outpatient (BNVA) | payer MEDICARE, MEDICAID, SELFPAY | PROVIDERS: PCP Family Medicine; Referring Provider Family Medicine; Visit Provider Orthopaedic Surgery | DX: M47.22 Other spondylosis with radiculopathy, cervical region (principal) | CPT/HCPCS: 72050; 99204 ==

== ENCOUNTER → 2023-10-05 10:20 | Outpatient (BNVA) | payer MEDICARE, MEDICAID, SELFPAY | PROVIDERS: PCP Family Medicine; Visit Provider Family Medicine | DX: R60.0 Localized edema (principal); Z79.899 Other long term (current) drug therapy | CPT/HCPCS: 80048 ==

== ENCOUNTER 2023-10-25 14:00 | Outpatient (CLI) | payer MEDICARE, SELFPAY | END 2023-10-25 14:01 | disposition home or self-care (01) | LOC: SLEEP 10-26 14:59 | PROVIDERS: PCP Family Medicine; Visit Provider Family Medicine | DX: G47.10 Hypersomnia, unspecified (principal) | CPT/HCPCS: G0399 ==

== ENCOUNTER 2023-10-26 15:30 | Outpatient (CLI) | payer MEDICARE, MEDICAID, SELFPAY ==
--- NOTE | 2023-10-26 16:00 | MR_ITS ---
WS: [id number] MRI CERVICAL SPINE NONCONTRAST HISTORY: neck pain COMPARISON: 02/18/2013 Technique: Multiplanar, multisequence noncontrast imaging of the cervical spine. Prior anterior cervical fusion at C5-6 with interbody spacer. Progression of degenerative disc diseas e and osteophytosis throughout the cervical spine since 2012. There is a small amount of marrow edema in the C4 vertebral body. No fracture. Signal within the cervical cord is normal. Visualized posterior fossa is unremarkable. Craniocervical junction, C1 and C2 relationship, odontoid process and soft tissues are normal. C2-C3: No significant stenosis. Very mild RIGHT foraminal narrowing. C3-C4: Osteophytic ridging and annular disc bulging encroaching upon the ventral thecal sac with face t arthropathy. Severe central and bilateral foraminal stenosis. C4-C5: Osteophytic ridging with annular disc bulging encroaching upon the ventral thecal sac. Severe central and bilateral foraminal stenosis with facet arthritis. C5-C6: Mild osteophytic ridging. Mild facet arthritis. Mild central with moderate bilateral foraminal stenosis. C6-C7: Osteophytic ridging and annular disc bulging. Moderate central with moderate to severe foramin al stenosis. C7-T1: Minimal bilateral foraminal stenosis and facet arthritis. Foraminal stenosis predominantly due to osteophyte disease. Paraspinal soft tissue are normal. MR/MR cervical spin wo con* [id number] IMPRESSION: 1. Status post anterior cervical fusion with interbody spacer at C5-6. 2. Progression of cervical spondylosis with multilevel stenosis since 3. Progression of facet joint arthritis. 3. C3-4 and C4-5: Severe central and bilateral foraminal stenosis due to disc, osteophytic ridging and arthropathy. 4. C5-6: Mild central with moderate bilateral foraminal stenosis predominantly due to osteophyte disease. 5. C6-7: Moderate central with moderate to severe foraminal stenosis. 6. C7-T1: Mild foraminal stenosis.
== END 2023-10-26 15:31 | disposition home or self-care (01) ==
LOC: RAD 15:30
PROVIDERS: PCP Family Medicine; Visit Provider Orthopaedic Surgery
DX: M54.12 Radiculopathy, cervical region (principal); M43.22 Fusion of spine, cervical region; M50.30 Other cervical disc degeneration, unspecified cervical region; M25.78 Osteophyte, vertebrae; G95.19 Other vascular myelopathies; M48.02 Spinal stenosis, cervical region; M50.31 Other cervical disc degeneration, high cervical region; M50.321 Other cervical disc degeneration at C4-C5 level; M47.812 Spondylosis without myelopathy or radiculopathy, cervical region; M50.323 Other cervical disc degeneration at C6-C7 level; M48.03 Spinal stenosis, cervicothoracic region; M47.813 Spondylosis without myelopathy or radiculopathy, cervicothoracic region
CPT/HCPCS: 72141

== ENCOUNTER → 2023-10-31 13:27 | Outpatient (BNVA) | payer MEDICARE, MEDICAID, SELFPAY | PROVIDERS: PCP Family Medicine; Visit Provider Orthopaedic Surgery | DX: M54.2 Cervicalgia (principal); M47.22 Other spondylosis with radiculopathy, cervical region | CPT/HCPCS: 99214 ==

== ENCOUNTER 2023-11-14 09:06 | Outpatient (RCR) | payer MEDICARE, MEDICAID, SELFPAY | END 2023-11-26 23:59 | disposition home or self-care (01) | LOC: SPT 09:06 | PROVIDERS: PCP Family Medicine; Visit Provider Orthopaedic Surgery | DX: M54.2 Cervicalgia (principal); G89.29 Other chronic pain | CPT/HCPCS: 97110; 97140; 97161 ==

== ENCOUNTER → 2023-12-06 12:16 | Outpatient (BNVA) | payer MEDICARE, MEDICAID, SELFPAY | PROVIDERS: Visit Provider Family Medicine | DX: R03.0 Elevated blood-pressure reading, without diagnosis of hypertension (principal); R60.0 Localized edema | CPT/HCPCS: 80048 ==

== ENCOUNTER → 2023-12-07 14:18 | Outpatient (BNVA) | payer MEDICARE, MEDICAID, SELFPAY | DX: G47.30 Sleep apnea, unspecified (principal); E87.6 Hypokalemia; R60.0 Localized edema; I25.10 Atherosclerotic heart disease of native coronary artery without angina pectoris | CPT/HCPCS: 83735; 83880 ==

== ENCOUNTER 2023-12-13 09:47 | Observation (INO) | payer MEDICARE, MEDICAID, SELFPAY ==
[2023-12-13] VITALS (17 sets, daily range): BP systolic 109–136; BP diastolic 45–72; PULSE 64–86; RESP 17–30; TEMP 36.6–36.9; O2SAT 96–99; BMI 39.3
--- NOTE | 2023-12-13 10:06 | XRR_ITS ---
PROCEDURE INFORMATION: Exam: XR Chest Exam date and time: 12/13/2023 10:08 AM Age: 63 years old Clinical indication: Pain; Shortness of breath; Angina pectoris; Additional info: Chest pain TECHNIQUE: Imaging protocol: Radiologic exam of the chest. Views: 1 view. COMPARISON: CT lung screening [id number] 08/30/2023 7:04 AM FINDINGS: Lungs: Unremarkable. No consolidation or mass. Pleural spaces: Unremarkable. No pleural effusion. No pneumothorax. Heart/Mediastinum: Unremarkable. No cardiomegaly. Bones/joints: Unremarkable. XR/XR chest 1V portable [id number] IMPRESSION: No acute findings.
--- NOTE | 2023-12-13 10:06 | ECG_ITS ---
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 Measurements Intervals [place] Rate: 72 P: -12 MS: 141 QRS: 67 QRSD: 82 T: 68 QT: 381 QTc: 419 Interpretive Statements SINUS RHYTHM INTERPRETATION BASED ON A DEFAULT AGE OF 40 YEARS Compared to ECG 05/24/2018 05:16:14 No significant changes Electronically Signed On 12-13-2023 16:39:57 CDT by Yvan Ryan M.D. [id number]
[2023-12-13] MEDS: aspirin 81 mg Chew Tablet 324 MG PO (10:15)
[2023-12-13] MEDS: dexamethasone 10 mg/mL INJ IM (10:17)
[2023-12-13] MEDS: sodium chloride 0.9% 500 ML 999 ML IV (10:17)
[2023-12-13 10:24] LABS: Troponin(5th) Baseline 11 ng/L (0-10)
[2023-12-13 10:25] LABS: Albumin Level 3.9 g/dL (3.5-5.2); Alkaline Phosphatase 125 U/L (35-105); Basophils # 0.1 10^3/uL (0.0-0.1); Basophils % 0.5 %; Blood Urea Nitrogen 16 mg/dL (8-23); Calcium 9.1 mg/dL (8.5-10.5); Carbon Dioxide 18 mmol/L (22-29); Chloride 107 mmol/L (98-107); Creatinine Clr Calc Pharmacy 69.7616; Eosinophils # 0.2 10^3/uL (0.0-0.8); Eosinophils % 2.2 %; Globulin 2.5 g/dL (1.3-4.6); Glomerular Filtration Rate 63.2 mL/min (90-130); Glucose 104 mg/dL (65-115); Hematocrit 27.4 % (36-47); Lymphocytes # 2.6 10^3/uL (0.8-4.8); Lymphocytes % 26.5 %; Mean Corpuscular HGB Conc 28.5 g/dL (30-55); Mean Corpuscular Hemoglobin 20.9 pg (27-33); Mean Corpuscular Volume 73.5 fl (85-98); Mean Platelet Volume 9.8 fL (7.4-10.4); Monocytes # 0.6 10^3/uL (0.2-0.9); Monocytes % 6.2 %; Neutrophils # 6.24 10^3/uL (1.8-7.7); Neutrophils % 64.3 %; Nucleated Red Blood Cells % 0 %; Osmolality Calculated 289 mOsm/kg (285-295); Platelet Count 501 10^3/cmm (157-399); Red Blood Count 3.73 10^6/uL (3.85-5.65); Red Cell Distribution Width 19.1 % (12.1-15.1); Sodium 139 mmol/L (136-145); Total Bilirubin 0.2 mg/dL (0.15-1.2); Total Protein 6.4 g/dL (6.6-8.7)
[2023-12-13 10:27] LABS: Alanine Aminotransferase 15 U/L (0-33); Anion Gap 19.5 (5-19); Aspartate Amino Transferase 26 U/L (0-32); Potassium 5.5 mmol/L (3.5-5.1)
[2023-12-13 10:34] LABS: ABG PCO2 31.1 mmHg (35-45); ABG PH Result 7.41 (7.35-7.45); Alveolar-Arterial Oxygen Gradi 4.1 mmHg (5-10); Arterial Blood Gas Hematocrit 21.5 % (37-47); Base Excess ABG -4.4 mmol/L (-2.0-2.0); Blood Gas Allen Test Pos; Blood Gas Operator Identificat WALCI; Blood Gas Sample Site Radial, left; Blood Gas Sample Type Arterial; HCO3 ABG 19.7 mmol/L (22-26); HGB O2 Sat 93.3 % (95-100); Ionized Calcium Level - ABG 1.2 mmol/L (1.1-1.4); Methemoglobin 0.4 % (0.4-1.5); Oxygen Device ROOM AIR; Oxygen Saturation ABG 96.6; PO2 ABG 78.7 mmHg (80.0-100.0); PO2 FiO2 Ratio Arterial Blood 374; Potassium Level - ABG 4.9 mmol/L (3.5-5.0)
[2023-12-13] MEDS: ipratropium-albuterol 3 mL Neb INHALATION ×2 (10:38→12:32)
[2023-12-13 11:50] LABS: Basophils # 0.1 10^3/uL (0.0-0.1); Basophils % 0.6 %; Eosinophils # 0.2 10^3/uL (0.0-0.8); Eosinophils % 1.7 %; Hematocrit 25.1 % (36-47); Lymphocytes # 2.1 10^3/uL (0.8-4.8); Mean Corpuscular HGB Conc 28.3 g/dL (30-55); Mean Corpuscular Hemoglobin 20.8 pg (27-33); Mean Corpuscular Volume 73.4 fl (85-98); Mean Platelet Volume 9.2 fL (7.4-10.4); Monocytes # 0.5 10^3/uL (0.2-0.9); Monocytes % 5.2 %; Neutrophils # 6.24 10^3/uL (1.8-7.7); Neutrophils % 69.2 %; Nucleated Red Blood Cells % 0 %; Platelet Count 419 10^3/cmm (157-399); Red Blood Count 3.42 10^6/uL (3.85-5.65); Red Cell Distribution Width 19.1 % (12.1-15.1); White Blood Count 9.01 10^3/uL (3.29-11.43)
--- NOTE | 2023-12-13 11:58 | W.ED.CHESTPA ---
HPI - Chest Pain General: Chief Complaint: Chest Pain Stated Complaint: Chest Pain, SOB Time Seen by Provider: 12/13/23 09:55 Source: patient Mode of arrival: ambulatory History of Present Illness: 63-year-old female presents emergency room complaining of increasing shortness of breath. Later she admitted to dark and sometimes even bloody stools over the last several months. She has gotten to the point where she is can even do regular activities inside of her home in her home and just walking across of the room makes her severely short of breath. She denies any hematemesis or coffee-ground emesis no fever sweats or chills. Patient is a regular smoker she has been wheezing with mildly productive cough. MD complaint: chest pain Associated symptoms: Reports dyspnea and nausea; Deny abdominal pain, fever(s) or vomiting Review of Systems Const: Denies: fever(s) or chills Card: Denies: chest pain Resp: Reports: dyspnea, productive cough and wheezing GI: Reports: nausea, hematochezia and melena; Denies: abdominal pain, vomiting, hematemesis or coffee ground emesis : Denies: dysuria, urinary frequency or urinary urgency Musc: Denies: neck pain or back pain Skin/Breast: Denies: rash PFSH ED PFSH: Medical History Cervical radiculopathy Hypokalemia CAD (coronary artery disease) Enrolled in chronic care management COPD (chronic obstructive pulmonary disease) Hypothyroid ASHD (arteriosclerotic heart disease) GERD (gastroesophageal reflux disease) Surgical History History of cholecystectomy H/O: hysterectomy History of colon surgery Colon resection for polyposis, no history of colon cancer History of neck surgery History of foot surgery Family History Mother CAD (coronary artery disease) [place] x 2 Chronic kidney disease (CKD) Cancer Diabetes Stroke Father CAD (coronary artery disease) PCI x 3 Dementia Diabetes Brother Cancer Lung disease Brother Cancer Lung disease Daughter Cancer Denies family history of Clotting disorder Suicide Anesthesia complication Bleeding disorder Social History Smoking and tobacco/nicotine status: never used tobacco/nicotine Alcohol intake: never Substance/Drug Use: current Other substance/drug use details: Gummies Adopted: No service: No Current occupational exposures/hazards: No Physical Exam Const: GENERAL APPEARANCE: cooperative and comfortable ORIENTATION/CONSCIOUSNESS: Yes awake, Yes oriented to person, Yes oriented to place and Yes oriented to time HENMT: COMMON NORMALS: normocephalic, atraumatic and hearing grossly normal bilaterally HEAD & SCALP: normocephalic and atraumatic Resp: COMMON NORMALS: normal respiratory effort, No retractions and No use of accessory muscles AUSCULTATION: rhonchi and wheezes Cardio: COMMON NORMALS: regular rate, regular rhythm and No murmurs present (Cardio) RATE: regular rate RHYTHM: regular rhythm GI: COMMON NORMALS: Soft to palpation and No hepatosplenomegaly present AUSCULTATION: Yes normoactive bowel sounds PALPATION: Yes Soft to palpation, No Tenderness to palpation present (GI), No Guarding due to palpation present (GI) and Yes No hepatosplenomegaly present OTHER: Dark maroonish stool Sharpley Hemoccult positive Extremity: COMMON NORMALS: normal to inspection, capillary refill normal, no clubbing, cyanosis or edema, no calf tenderness and no pedal edema Neuro: SENSORIUM/ORIENTATION: Yes oriented to person, Yes oriented to place and Yes oriented to time Skin: COMMON NORMALS: no rashes or lesions noted GENERAL SKIN EXAM: no rashes or lesions noted Course Vital Signs: Vital signs: Vital Signs Temperature 98.8 F 12/14/23 05:17 Pulse Rate 65 12/14/23 05:22 Respiratory Rate 16 12/14/23 05:17 Blood Pressure 145/76 12/14/23 05:17 Pulse Oximetry 98 12/14/23 05:17 Oxygen Delivery Me thod Room Air 12/14/23 00:31 MDM - Chest Pain Medical Decision Making Coarse expiratory wheezes and rhonchi bilaterally improved after nebulizers. Her hemoglobin is quite low we repeated it and it had gone from 7 8-7 on. Rectal exam done sharply Hemoccult positive stools maroonish like stool that she states has been actually going on for several months. Will admit for exacerbation COPD transfusion blood. She will need evaluation for her blood loss previously her hemoglobin has been normal with her COPD would expect her to actually be likely polycythemic. She does tell me that she had previously had a colon resection for polyposis. Medical Records I reviewed the patient's medical records. Lab Data I reviewed the patient's lab results. 12/14/23 03:35 12/14/23 03:35 Radiology Impressions Chest X-Ray 12/13/23 10:06 IMPRESSION: No acute findings. Laboratory Results WBC 9.01 10^3/uL (3.29-11.43) 12/13/23 11:44 RBC 3.42 10^6/uL (3.85-5.65) L 12/13/23 11:44 Hgb 7.10 g/dL (11.27-16.99) L 12/13/23 11:44 Hct 25.1 % (36-47) L 12/13/23 11:44 MCV 73.4 fl (85-98) L 12/13/23 11:44 MCH 20.8 pg (27-33) L 12/13/23 11:44 MCHC 28.3 g/dL (30-55) L 12/13/23 11:44 RDW 19.1 % (12.1-15.1) H 12/13/23 11:44 Plt Count 419 10^3/cmm (157-399) H 12/13/23 11:44 MPV 9.2 fL (7.4-10.4) 12/13/23 11:44 Neut % (Auto) 69.2 % 12/13/23 11:44 Lymph % (Auto) 23.0 % 12/13/23 11:44 [place]bour % (Auto) 5.2 % 12/13/23 11:44 Eos % (Auto) 1.7 % 12/13/23 11:44 Baso % (Auto) 0.6 % 12/13/23 11:44 Neut # (Auto) 6.24 10^3/uL (1.8-7.7) 12/13/23 11:44 Lymph # (Auto) 2.1 10^3/uL (0.8-4.8) 12/13/23 11:44 [place] # (Auto) 0.5 10^3/uL (0.2-0.9) 12/13/23 11:44 Eos # (Auto) 0.2 10^3/uL (0.0-0.8) 12/13/23 11:44 Baso # (Auto) 0.1 10^3/uL (0.0-0.1) 12/13/23 11:44 Nucleated RBC % (auto) 0 % 12/13/23 11:44 Nucleated RBCs # 0.0 /100WBC 12/13/23 11:44 Specimen Type Arterial 12/13/23 10:23 Sample Site Radial, left 12/13/23 10:23 ABG pH 7.41 (7.35-7.45) 12/13/23 10:23 ABG pCO2 31.1 mmHg (35-45) L 12/13/23 10:23 ABG pO2 78.7 mmHg (80.0-100.0) L 12/13/23 10:23 ABG PO2/FiO2 Ratio 374 12/13/23 10:23 ABG HCO3 19.7 mmol/L (22-26) L 12/13/23 10:23 ABG O2 Saturation 96.6 12/13/23 10:23 ABG Base Excess -4.4 mmol/L (-2.0-2.0) L 12/13/23 10:23 Zenon Test Pos 12/13/23 10:23 A-a O2 Gradient 4.1 mmHg (5-10) L 12/13/23 10:23 Hematocrit 21.5 % (37-47) L 12/13/23 10:23 Hgb O2 Saturation 93.3 % (95-100) L 12/13/23 10:23 Carboxyhemoglobin 3.0 %THgb (0.4-20.1) 12/13/23 10:23 Methemoglobin 0.4 % (0.4-1.5) 12/13/23 10:23 Total Hemoglobin 7.0 g/dL (12-16) L 12/13/23 10:23 Sodium 139.0 mmol/L (131-143) 12/13/23 10:23 Potassium 4.9 mmol/L (3.5-5.0) 12/13/23 10:23 Glucose 97.0 mg/dL (70-115) 12/13/23 10:23 Ionized Calcium 1.2 mmol/L (1.1-1.4) 12/13/23 10:23 O2 Delivery Device Room air 12/13/23 10:23 FiO2 21.0 % 12/13/23 10:23 Surgical Appliance Fitter ID Maral 12/13/23 10:23 Sodium 138 mmol/L (136-145) 12/13/23 11:38 Potassium 5.2 mmol/L (3.5-5.1) H 12/13/23 11:38 Chloride 108 mmol/L (98-107) H 12/13/23 11:38 Carbon Dioxide 20 mmol/L (22-29) L 12/13/23 11:38 Anion Gap 15.2 (5-19) 12/13/23 11:38 BUN 16 mg/dL (8-23) 12/13/23 11:38 Creatinine 0.9 mg/dL (0.5-0.9) 12/13/23 11:38 GFR Calculation 63.2 mL/min (90-130) L 12/13/23 11:38 Glucose 103 mg/dL (65-115) 12/13/23 11:38 Estimat Average Glucose 114 12/13/23 09:53 Hemoglobin A1c 5.6 % (4.0-6.0) 12/13/23 09:53 Calculated Osmolality 287 mOsm/kg (285-295) 12/13/23 11:38 Calcium 8.4 mg/dL (8.5-10.5) L 12/13/23 11:38 Iron 41 ug/dL (37-145) 12/13/23 09:53 TIBC 452 mcg/dl 12/13/23 09:53 % Saturation 9.0 % (20-50) L 12/13/23 09:53 Unsat Iron Binding 411 ug/dL (112-347) H 12/13/23 09:53 Ferritin 8 ng/mL (15-150) L 12/13/23 09:53 Total Bilirubin 0.2 mg/dL (0.15-1.2) 12/13/23 09:53 AST 26 U/L (0-32) 12/13/23 09:53 ALT 15 U/L (0-33) 12/13/23 09:53 Alkaline Phosphatase 125 U/L (35-105) H 12/13/23 09:53 Troponin T Baseline 11 ng/L (0-10) H 12/13/23 09:53 Troponin T 120 Minute 10.68 ng/L (0-10) H 12/13/23 11:38 Delta Troponin T -0.32 ABS# (0-10) L 12/13/23 11:38 Total Protein 6.4 g/dL (6.6-8.7) L 12/13/23 09:53 Albumin 3.9 g/dL (3.5-5.2) 12/13/23 09:53 Globulin 2.5 g/dL (1.3-4.6) 12/13/23 09:53 Vitamin B12 364 pg/mL (232-1245) 12/13/23 09:53 TSH 1.75 uIU/mL (0.27-4.20) 12/13/23 09:53 Blood Type A Positive 12/13/23 12:08 Rho(D) Type Rh positive 12/13/23 12:08 Antibody Screen Negative 12/13/23 12:08 Crossmatch See Detail 12/13/23 12:08 All radiology interpretation(s) finalized by discharge Discharge Plan Discharge Patient Disposition: Admitted As Inpatient Admit Provider: Geronimo Modi Clinical Impression: Acute exacerbation of chronic obstructive pulmonary disease (COPD), Anemia, Acute GI bleeding Condition: Stable Coding Level of Care Code ED Support Coordinator for Armando Cheatham
[2023-12-13 12:04] LABS: Anion Gap 15.2 (5-19); Blood Urea Nitrogen 16 mg/dL (8-23); Calcium 8.4 mg/dL (8.5-10.5); Carbon Dioxide 20 mmol/L (22-29); Chloride 108 mmol/L (98-107); Creatinine Clr Calc Pharmacy 69.7616; Glomerular Filtration Rate 63.2 mL/min (90-130); Glucose 103 mg/dL (65-115); Osmolality Calculated 287 mOsm/kg (285-295); Potassium 5.2 mmol/L (3.5-5.1); Sodium 138 mmol/L (136-145)
[2023-12-13 12:07] LABS: Troponin 5 2HR 10.68 ng/L (0-10)
[2023-12-13 12:08] LABS: Troponin 5 2HR Delta -0.32 ABS# (0-10)
--- NOTE | 2023-12-13 12:11 | P.HP_ITS ---
Providers/Chief Complaint 2 Primary Care Provider: Neha Valverde NP Chief Complaint: Chest Pain, SOB History of Present Illness Flor Du is a 63 year old female w ASDH, hypothyroidism, dyspnea on exertion, reactive airway disease, and COPD, previously stress test and echo was unremarkable, she was evaluated for dyspnea on exertion by Dr. Haque, active smoker, presented today with chief complaint of weakness lethargy fatigue and chest discomfort. Patient stating that she has been noticing dark-colored stools for last 12 months, she has been on aspirin, he has history of malignant polyps status post colectomy few years back, her daughter has colon cancer, patient smokes more than 2 packs/day, she was experiencing chest pain intermittently, she describing her pain as achy, mainly on exertion. He is also endorsing shortness of breath stating that she has a CPAP machine which is getting approved for her. She does not use oxygen at baseline. Patient is stating that she has not taken her diuretics because of low potassium. In the ER her hemoglobin is 7 she is hemodynamically stable I have put on clear liquid diet requested EGD, keep n.p.o. after midnight requested 2 unit PRBC start her on Protonix and sucralfate Initially patient was stating that she would like to get scopes done outpatient but when I revisited with her she said if she could be discharged on same day after EGD she would like to get it done while she is here Will request Dr. Coronel to see her as well Review of Systems 2 Const: Denies: fever(s) Eyes: Denies: change in vision ENMT: Denies: throat pain Card: Reports: chest pain and swelling of feet/ankles Resp: Reports: dyspnea GI: Denies: abdominal pain : Denies: flank pain Musc: Denies: neck pain Skin/Breast: Denies: rash Neuro: Denies: headache(s) Psych: Reports: anxiety Medications/Allergies Home Medications Medication Instructions Recorded Confirmed Last Taken Type nitroglycerin 0.4 mg sublingual 0.4 mg sublingual Q5M PRN chest 05/26/22 12/13/23 Unknown Rx tablet (Nitrostat) pain 6 weeks #30 tabs aspirin 81 mg tablet,delayed 81 mg PO QAM 10/10/22 12/13/23 12/12/23 History release (Adult Aspirin Regimen) tizanidine 4 mg tablet 4 mg PO Q8H PRN muscle spasticity 08/15/23 12/13/23 Unknown Rx #20 tabs metolazone 5 mg tablet 5 mg PO DAILY #30 tabs 10/05/23 12/13/23 Unknown Rx Auto titrating CPAP set to 6-14 #1 ea 12/07/23 12/13/23 Unknown Rx with mask and tubing potassium chloride 20 mEq 40 meq (2 x 20 mEq) PO BID #56 tabs 12/07/23 12/13/23 12/12/23 Rx tablet,extended release(part/cryst) spironolactone 25 mg tablet 25 mg PO DAILY #14 tabs 12/07/23 12/13/23 Unknown Rx albuterol sulfate 90 mcg/actuation 2 puff inhalation Q6H PRN 12/13/23 12/13/23 Unknown History aerosol inhaler Shortness Of Breath fluticasone fur. 100 mcg-umeclid 1 inh inhalation DAILY 12/13/23 12/13/23 12/12/23 History 62.5 mcg-vilant 25 mcg inhalat.powder (Trelegy Ellipta) furosemide 40 mg tablet 40 mg PO QAM 12/13/23 12/13/23 Unknown History gabapentin 300 mg capsule 300 mg PO TID 12/13/23 12/13/23 12/12/23 History levothyroxine 50 mcg tablet 50 mcg PO DAILY 12/13/23 12/13/23 12/12/23 History omeprazole 40 mg capsule,delayed 40 mg PO DAILY 12/13/23 12/13/23 12/12/23 History release Allergies Allergy/AdvReac Type Severity Reaction Status Date / Time No Known Allergies Allergy Verified 12/12/23 09:17 PFSH Acute 2 PFSH: Medical History Cervical radiculopathy Hypokalemia CAD (coronary artery disease) Enrolled in chronic care management COPD (chronic obstructive pulmonary disease) Hypothyroid ASHD (arteriosclerotic heart disease) GERD (gastroesophageal reflux disease) Surgical History History of cholecystectomy H/O: hysterectomy History of colon surgery Colon resection for polyposis, no history of colon cancer History of neck surgery History of foot surgery Family History Mother CAD (coronary artery disease) [place] x 2 Chronic kidney disease (CKD) Cancer Diabetes Stroke Father CAD (coronary artery disease) PCI x 3 Dementia Diabetes Brother Cancer Lung disease Brother Cancer Lung disease Daughter Cancer Denies family history of Clotting disorder Suicide Anesthesia complication Bleeding disorder Social History Smoking and tobacco/nicotine status: never used tobacco/nicotine Alcohol intake: never Substance/Drug Use: current Other substance/drug use details: Gummies Adopted: No service: No Current occupational exposures/hazards: No Vitals/I&O/Wt Last Vital Signs Temp 98.1 F 12/13/23 09:50 Pulse 66 12/13/23 10:54 Resp 20 H 12/13/23 10:54 BP 113/65 12/13/23 10:54 Pulse Ox 97 12/13/23 10:54 O2 Del Method Room Air 12/13/23 10:54 Weight last 48 hrs Weight 97.522 kg Physical Exam 2 Narrative: Morbidly obese female Hemodynamically stable Currently on room air Hoarseness of voice noted Doing well on room air no active wheezing Abdomen soft No lower extremity edema S1, S2 Sinus rhythm Hemodynamically stable Data 12/13/23 11:44 12/13/23 11:38 A&P Assessment and plan (1) UGIB (upper gastrointestinal bleed): (2) Symptomatic anemia: (3) GERD (gastroesophageal reflux disease): Qualifiers: Esophagitis presence: without esophagitis Qualified Code(s): K21.9 - Gastro-esophageal reflux disease without esophagitis (4) COPD (chronic obstructive pulmonary disease): Qualifiers: COPD type: emphysema Emphysema type: panlobular Qualified Code(s): J 43.1 - Panlobular emphysema (5) Nicotine dependence, cigarettes, with unspecified nicotine-induced disorders: Plan Acute on chronic microcytic anemia Check iron B12 and folate Patient is hemodynamically stable Endorsing black-colored stool for last 1 year History of GERD, takes aspirin History of malignant polyp status post colectomy Will request Dr. Coronel for an EGD for now Patient may need colonoscopy as well I will start her on Protonix and sucralfate Will give her 2 unit PRBC Chest pain: Secondary to symptomatic anemia Keep her hemoglobin above 9 Previous stress test and echo reviewed: Which were unremarkable Active smoker we will use 21 mg nicotine patch Clear liquid diet for now N.p.o. after midnight DVT prophylaxis covered with SCDs Full code Attestations 2 Medical Necessity Statement*: Anticipating discharge within 40 hours Diagnoses UGIB (upper gastrointestinal bleed) K92.2 Symptomatic anemia D64.9 Gastroesophageal reflux disease without esophagitis K21.9 Esophagitis presence: without esophagitis Panlobular emphysema J43.1 COPD type: emphysema Emphysema type: panlobular Nicotine dependence, cigarettes, with unspecified nicotine-induced disorders F17.219
--- NOTE | 2023-12-13 12:12 | ECG_ITS ---
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 Measurements Intervals [place] Rate: 70 P: 49 WV: 122 QRS: 64 QRSD: 79 T: 58 QT: 410 QTc: 443 Interpretive Statements SINUS RHYTHM WITH OCCASIONAL SUPRAVENTRICULAR PREMATURE COMPLEXES Compared to ECG 12/13/2023 09:48:06 No significant changes Electronically Signed On 12-13-2023 16:43:54 CDT by Yvan Ryan M.D. [id number]
[2023-12-13] MEDS: pantoprazole 40 mg SDV 80 MG IVP (12:32)
[2023-12-13 12:39] LABS: Ferritin 8 ng/mL (15-150); Iron 41 ug/dL (37-145)
[2023-12-13 14:16] LABS: Total Iron Binding Capacity 452 mcg/dl; Unsaturated Iron Binding 411 ug/dL (112-347)
--- NOTE | 2023-12-13 14:34 | PC.NURSE ---
Addendum entered by Becca Valdes LPN 12/13/23 14:46: Pt up to med surg floor at 1446 Original Note: This nurse took report from TRACI Arzate in ER at 1433.
[2023-12-13] MEDS: sucralfate 1 gm/10 mL Oral Liq UDC PO ×2 (14:50→20:29)
[2023-12-13] MEDS: FUROsemide 10 mg/mL SDV 4mL 40 MG IVP (14:51)
[2023-12-13] MEDS: nicotine 21 mg Patch 1 PATCH TRANSDERMA (14:51)
--- NOTE | 2023-12-13 15:30 | PC.NURSE ---
Pt refused SCD's stating I don't feel like I need them.
[2023-12-13 15:39] LABS: Thyroid Stimulating Hormone 1.75 uIU/mL (0.27-4.20); Vitamin B12 364 pg/mL (232-1245)
[2023-12-13 15:53] LABS: Amphetamines Screen Urine Positive (Negative); Barbiturates Screen Urine Negative (Negative); Benzodiazepines Screen Urine Negative (Negative); Cocaine Screen Urine Negative (Negative); Opiate Screen Urine Negative (Negative); PCP Screen Urine Negative (Negative); THC Screen Urine Positive (Negative)
--- NOTE | 2023-12-13 15:53 | ECG_ITS ---
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 Measurements Intervals [place] Rate: 70 P: 51 SC: 149 QRS: 60 QRSD: 84 T: 60 QT: 413 QTc: 446 Interpretive Statements SINUS RHYTHM Compared to ECG 12/13/2023 12:12:43 No significant changes Electronically Signed On 12-13-2023 16:45:31 CDT by Yvan Ryan M.D. [id number]
[2023-12-13 16:25] LABS: Estmated Average Glucose 114; Hemoglobin A1C 5.6 % (4.0-6.0)
[2023-12-13 16:47] LABS: Troponin 5 6HR 14.09 ng/L (0-10); Troponin 5 6HR Delta 3.09 ng/L (0-12)
[2023-12-13] MEDS: pantoprazole 40 mg SDV IVP (17:07)
[2023-12-13 18:21] LABS: Basophils % 0.4 %; Hematocrit 31.8 % (36-47); Lymphocytes # 1.1 10^3/uL (0.8-4.8); Lymphocytes % 13.4 %; Mean Corpuscular HGB Conc 28.9 g/dL (30-55); Mean Corpuscular Hemoglobin 20.8 pg (27-33); Mean Corpuscular Volume 71.8 fl (85-98); Mean Platelet Volume 9.4 fL (7.4-10.4); Monocytes % 0.4 %; Neutrophils # 6.66 10^3/uL (1.8-7.7); Neutrophils % 84.9 %; Nucleated Red Blood Cells % 0 %; Platelet Count 485 10^3/cmm (157-399); Red Blood Count 4.43 10^6/uL (3.85-5.65); Red Cell Distribution Width 18.4 % (12.1-15.1); White Blood Count 7.84 10^3/uL (3.29-11.43)
[2023-12-13 18:53] LABS: Slide Review Slide Review Perform
[2023-12-13] MEDS: acetaminophen 500 mg Tablet PO (22:00)
[2023-12-14] VITALS (12 sets, daily range): BP systolic 104–145; BP diastolic 57–97; PULSE 64–76; RESP 12–18; TEMP 36.1–37.1; O2SAT 94–99
[2023-12-14] MEDS: ipratropium-albuterol 3 mL Neb INHALATION ×3 (00:27→12:10)
--- NOTE | 2023-12-14 00:36 | USCV_ITS ---
Flor Du Age: 63 Gender: F : 1960 Exam Date: 12/14/2023 00:52 Ordering Phys: Gail Vo MD Technologist: LETITIA [place] [facility] [place] left leg pain. No history of DVT per patient. HISTORY: left leg pain. No history of DVT per patient. PROCEDURES: Venous duplex imaging was performed in only the left lower extremity. The following venous structures were evaluated: common femoral vein, profunda vein, proximal portion of the greater saphenous vein, superficial femoral vein, and the popliteal vein. In addition, the posterior tibial and peroneal veins were evaluated. Serial compression, augmentation maneuvers, and spectral Doppler flow evaluation were performed, which were normal. On the left side, the common femoral, superficial femoral, profunda femoral, popliteal, posterior tibial, greater saphenous veins, and the peroneal veins were identified and interrogated in the standard fashion. These veins were found to be easily compressible with spontaneous blood flow. No evidence of thrombus noted. CONCLUSIONS No evidence of left lower extremity DVT. Aydin Vega MD (Electronically Signed) Final Date: 14 December 2023 09:13 S
[2023-12-14 01:57] LABS: Blood Urea Nitrogen 14 mg/dL (8-23); Calcium 8.8 mg/dL (8.5-10.5); Carbon Dioxide 18 mmol/L (22-29); Chloride 104 mmol/L (98-107); Creatinine Clr Calc Pharmacy 79.9767; Glomerular Filtration Rate 72.4 mL/min (90-130); Glucose 126 mg/dL (65-115); Osmolality Calculated 286 mOsm/kg (285-295); Sodium 137 mmol/L (136-145)
[2023-12-14 02:02] LABS: Anion Gap 19.3 (5-19); Potassium 4.3 mmol/L (3.5-5.1)
[2023-12-14 03:41] LABS: Basophils % 0.4 %; Hematocrit 28.6 % (36-47); Lymphocytes # 1.6 10^3/uL (0.8-4.8); Lymphocytes % 31.1 %; Mean Corpuscular HGB Conc 30.1 g/dL (30-55); Mean Corpuscular Hemoglobin 21.1 pg (27-33); Mean Corpuscular Volume 70.1 fl (85-98); Mean Platelet Volume 9.3 fL (7.4-10.4); Monocytes # 0.2 10^3/uL (0.2-0.9); Neutrophils # 3.28 10^3/uL (1.8-7.7); Neutrophils % 64.5 %; Nucleated Red Blood Cells % 0 %; Platelet Count 448 10^3/cmm (157-399); Red Blood Count 4.08 10^6/uL (3.85-5.65); Red Cell Distribution Width 18.1 % (12.1-15.1); White Blood Count 5.08 10^3/uL (3.29-11.43)
[2023-12-14 04:01] LABS: Anion Gap 18.2 (5-19); Blood Urea Nitrogen 14 mg/dL (8-23); C Reactive Protein 4.3 mg/L (0.0-4.9); Calcium 8.7 mg/dL (8.5-10.5); Carbon Dioxide 19 mmol/L (22-29); Chloride 106 mmol/L (98-107); Creatinine Clr Calc Pharmacy 79.9767; Glomerular Filtration Rate 72.4 mL/min (90-130); Glucose 124 mg/dL (65-115); Magnesium 1.9 mg/dL (1.7-2.3); Osmolality Calculated 290 mOsm/kg (285-295); Potassium 4.2 mmol/L (3.5-5.1); Sodium 139 mmol/L (136-145)
[2023-12-14] MEDS: levothyroxine 50 mcg Tablet PO (08:40)
[2023-12-14] MEDS: sucralfate 1 gm/10 mL Oral Liq UDC PO (08:40)
[2023-12-14] MEDS: pantoprazole 40 mg SDV IVP (08:40)
[2023-12-14] MEDS: FUROsemide 10 mg/mL SDV 4mL 40 MG IVP (08:41)
--- NOTE | 2023-12-14 10:01 | PM.DCS ---
Discharge Providers Date of Admission: 12/13/23 12:13 Date of Discharge: December 14, 2023 Attending Provider at Admission: Geronimo Modi MD Attending Provider at Discharge: Geronimo Modi MD Primary Care Provider: Neha Valverde NP Diagnoses at Discharge Discharge Diagnosis (1) UGIB (upper gastrointestinal bleed): Status: Acute (2) Symptomatic anemia: Status: Acute (3) GERD (gastroesophageal reflux disease): Status: Acute Qualifiers: Esophagitis presence: without esophagitis Qualified Code(s): K21.9 - Gastro-esophageal reflux disease without esophagitis (4) COPD (chronic obstructive pulmonary disease): Status: Acute Qualifiers: COPD type: emphysema Emphysema type: panlobular Qualified Code(s): J43.1 - Panlobular emphysema (5) Nicotine dependence, cigarettes, with unspecified nicotine-induced disorders: Status: Acute Reason for Visit Reason for Visit: Chest Pain, SOB Hospital Course Hospital Course Flor Du is a 63 year old female w ASDH, hypothyroidism, dyspnea on exertion, reactive airway disease, and COPD, previously stress test and echo was unremarkable, she was evaluated for dyspnea on exertion by Dr. Haque, active smoker, presented today with chief complaint of weakness lethargy fatigue and chest discomfort Patient was diagnosed with acute on chronic microcytic anemia, black tarry stools noticed, stool guaiac positive, she was given 1 unit PRBC during hospitalization which improved her hemoglobin up to 9 She remained hemodynamic stable, drug screen positive for marijuana and methamphetamine, no recurrence of chest pain during hospitalization, troponin with negative delta, low normal B12 364, ferritin extremely low. Patient is stating that she had precancerous polyps that were removed in the past. Colectomy was done as well. Dr. Coronel was consulted for an EGD: EGD showed:-Gastritis and hernia Patient to follow-up with Dr. Lacey within 2 weeks for capsule endoscopy and colonoscopy At the time of discharge patient will get vitamin B12, iron and folic acid supplementation Physical Exam Narrative: Awake and alert Euvolemic GCS 15 Hemodynamic stable Currently on room air Pleasant cooperative Abdomen soft Discharge Data Studies Completed and Pending Completed Studies During Hospitalization Category Date Time Status XR chest 1V portable [id number] Stat Exams 12/13/23 10:06 Completed US venous duplex lower extremity LT [CV venous duplex Ultrasound 12/14/23 00:36 [place] [id number]] Stat Pending at discharge Category Date Time Status Occult Blood Stool [Immunochemical Fecal OCB] Routine Lab 12/13/23 14:06 Ordered PRBC [Leukocyte Reduced RBC] Routine Lab 12/13/23 12:08 Results Sputum Culture and Gram Stain Stat Lab 12/13/23 10:13 Uncollected Type and Screen Routine Lab 12/13/23 12:08 Results Radiology Impressions Chest X-Ray 12/13/23 10:06 IMPRESSION: No acute findings. Laboratory Results WBC 5.08 10^3/uL (3.29-11.43) 12/14/23 03:35 RBC 4.08 10^6/uL (3.85-5.65) 12/14/23 03:35 Hgb 8.60 g/dL (11.27-16.99) L 12/14/23 03:35 Hct 28.6 % (36-47) L 12/14/23 03:35 MCV 70.1 fl (85-98) L 12/14/23 03:35 MCH 21.1 pg (27-33) L 12/14/23 03:35 MCHC 30.1 g/dL (30-55) 12/14/23 03:35 RDW 18.1 % (12.1-15.1) H 12/14/23 03:35 Plt Count 448 10^3/cmm (157-399) H 12/14/23 03:35 MPV 9.3 fL (7.4-10.4) 12/14/23 03:35 Neut % (Auto) 64.5 % 12/14/23 03:35 Lymph % (Auto) 31.1 % 12/14/23 03:35 Mora % (Auto) 3.0 % 12/14/23 03:35 Eos % (Auto) 0.0 % 12/14/23 03:35 Baso % (Auto) 0.4 % 12/14/23 03:35 Neut # (Auto) 3.28 10^3/uL (1.8-7.7) 12/14/23 03:35 Lymph # (Auto) 1.6 10^3/uL (0.8-4.8) 12/14/23 03:35 Mora # (Auto) 0.2 10^3/uL (0.2-0.9) 12/14/23 03:35 Eos # (Auto) 0.0 10^3/uL (0.0-0.8) 12/14/23 03:35 Baso # (Auto) 0.0 10^3/uL (0.0-0.1) 12/14/23 03:35 Nucleated RBC % (auto) 0 % 12/14/23 03:35 Nucleated RBCs # 0.0 /100WBC 12/14/23 03:35 Specimen Type Arterial 12/13/23 10:23 Sample Site Radial, left 12/13/23 10:23 ABG pH 7.41 (7.35-7.45) 12/13/23 10:23 ABG pCO2 31.1 mmHg (35-45) L 12/13/23 10:23 ABG pO2 78.7 mmHg (80.0-100.0) L 12/13/23 10:23 ABG PO2/FiO2 Ratio 374 12/13/23 10:23 ABG HCO3 19.7 mmol/L (22-26) L 12/13/23 10:23 ABG O2 Saturation 96.6 12/13/23 10:23 ABG Base Excess -4.4 mmol/L (-2.0-2.0) L 12/13/23 10:23 Zenon Test Pos 12/13/23 10:23 A-a O2 Gradient 4.1 mmHg (5-10) L 12/13/23 10:23 Hematocrit 21.5 % (37-47) L 12/13/23 10:23 Hgb O2 Saturation 93.3 % (95-100) L 12/13/23 10:23 Carboxyhemoglobin 3.0 %THgb (0.4-20.1) 12/13/23 10:23 Methemoglobin 0.4 % (0.4-1.5) 12/13/23 10:23 Total Hemoglobin 7.0 g/dL (12-16) L 12/13/23 10:23 Sodium 139.0 mmol/L (131-143) 12/13/23 10:23 Potassium 4.9 mmol/L (3.5-5.0) 12/13/23 10:23 Glucose 97.0 mg/dL (70-115) 12/13/23 10:23 Ionized Calcium 1.2 mmol/L (1.1-1.4) 12/13/23 10:23 O2 Delivery Device Room air 12/13/23 10:23 FiO2 21.0 % 12/13/23 10:23 Fiber Optic [employer] ID Maral 12/13/23 10:23 Sodium 139 mmol/L (136-145) 12/14/23 03:35 Potassium 4.2 mmol/L (3.5-5.1) 12/14/23 03:35 Chloride 106 mmol/L (98-107) 12/14/23 03:35 Carbon Dioxide 19 mmol/L (22-29) L 12/14/23 03:35 Anion Gap 18.2 (5-19) 12/14/23 03:35 BUN 14 mg/dL (8-23) 12/14/23 03:35 Creatinine 0.8 mg/dL (0.5-0.9) 12/14/23 03:35 GFR Calculation 72.4 mL/min (90-130) L 12/14/23 03:35 Glucose 124 mg/dL (65-115) H 12/14/23 03:35 Estimat Average Glucose 114 12/13/23 09:53 Hemoglobin A1c 5.6 % (4.0-6.0) 12/13/23 09:53 Calculated Osmolality 290 mOsm/kg (285-295) 12/14/23 03:35 Calcium 8.7 mg/dL (8.5-10.5) 12/14/23 03:35 Magnesium 1.9 mg/dL (1.7-2.3) 12/14/23 03:35 Iron 41 ug/dL (37-145) 12/13/23 09:53 TIBC 452 mcg/dl 12/13/23 09:53 % Saturation 9.0 % (20-50) L 12/13/23 09:53 Unsat Iron Binding 411 ug/dL (112-347) H 12/13/23 09:53 Ferritin 8 ng/mL (15-150) L 12/13/23 09:53 Total Bilirubin 0.2 mg/dL (0.15-1.2) 12/13/23 09:53 AST 26 U/L (0-32) 12/13/23 09:53 ALT 15 U/L (0-33) 12/13/23 09:53 Alkaline Phosphatase 125 U/L (35-105) H 12/13/23 09:53 Troponin T Baseline 11 ng/L (0-10) H 12/13/23 09:53 Troponin T 120 Minute 10.68 ng/L (0-10) H 12/13/23 11:38 Delta Troponin T -0.32 ABS# (0-10) L 12/13/23 11:38 Troponin T Hi Sens 6Hr 14.09 ng/L (0-10) H 12/13/23 16:08 Troponin T Hi Sens 6Hr Delta 3.09 ng/L (0-12) 12/13/23 16:08 C-Reactive Protein 4.3 mg/L (0.0-4.9) 12/14/23 03:35 Total Protein 6.4 g/dL (6.6-8.7) L 12/13/23 09:53 Albumin 3.9 g/dL (3.5-5.2) 12/13/23 09:53 Globulin 2.5 g/dL (1.3-4.6) 12/13/23 09:53 Vitamin B12 364 pg/mL (232-1245) 12/13/23 09:53 TSH 1.75 uIU/mL (0.27-4.20) 12/13/23 09:53 Urine Opiates Screen Negative ng/mL (Negative) 12/13/23 15:22 Ur Barbiturates Screen Negative ng/mL (Negative) 12/13/23 15:22 Ur Phencyclidine Scrn Negative ng/mL (Negative) 12/13/23 15:22 Ur Amphetamines Screen Positive ng/mL (Negative) H 12/13/23 15:22 U Benzodiazepines Scrn Negative ng/mL (Negative) 12/13/23 15:22 Urine Cocaine Screen Negative ng/mL (Negative) 12/13/23 15:22 U Marijuana (THC) Screen Positive ng/mL (Negative) H 12/13/23 15:22 Blood Type A Positive 12/13/23 12:08 Rho(D) Type Rh positive 12/13/23 12:08 Antibody Screen Negative 12/13/23 12:08 Crossmatch See Detail 12/13/23 12:08 Vitals Last Vital Signs Temp 97.6 F 12/14/23 08:02 Pulse 72 07/18/24 08:13 Resp 18 12/14/23 08:06 BP 129/97 12/14/23 08:02 Pulse Ox 97 12/14/23 08:06 O2 Del Method Room Air 12/14/23 08:06 Discharge Plan Discharge Patient Disposition: Home Condition: Stable Prescriptions: New Folic Acid-Vit B6-Vit B12 (Ca) Tablet 1 tab PO DAILY Qty: 100 1RF iron 325 mg (65 mg iron) tablet 325 mg PO DAILY Qty: 100 0RF omeprazole 20 mg tablet,delayed release (DR/EC) 20 mg PO BID 84 Days Qty: 168 0RF sucralfate 1 gram tablet 1 g PO BID 84 Days Qty: 168 0RF Continued nitroglycerin [Nitrostat] 0.4 mg tablet, sublingual 0.4 mg SUBLINGUAL Q5M PRN (Reason: chest pain) 42 Days Qty: 30 5RF tizanidine 4 mg tablet 4 mg PO Q8H PRN (Reason: muscle spasticity) Qty: 20 0RF potassium chloride 20 mEq tablet,ER particles/crystals 40 meq PO BID Qty: 56 0RF (DME) Auto titrating CPAP set to 6-14 with mask and tubing See Rx Instructions .Route .MEDSUPPLY Qty: 1 0RF Rx Instructions: As directed albuterol sulfate 90 mcg/actuation HFA aerosol inhaler 2 puff INHALATION Q6H PRN (Reason: Shortness Of Breath) furosemide 40 mg tablet 40 mg PO QAM omeprazole 40 mg capsule,delayed release(DR/EC) 40 mg PO DAILY levothyroxine 50 mcg tablet 50 mcg PO DAILY gabapentin 300 mg capsule 300 mg PO TID Trelegy Ellipta 100-62.5-25 mcg blister with device 1 inh inhalation DAILY Discontinued aspirin [Adult Aspirin Regimen] 81 mg tablet,delayed release (DR/EC) 81 mg PO QAM metolazone 5 mg tablet 5 mg PO DAILY Qty: 30 0RF Hold Instructions: Dose Change spironolactone 25 mg tablet 25 mg PO DAILY Qty: 14 0RF Discharge Orders: Discharge Order (Routine); Ordered 12/14/23 Ordered By: Geronimo Modi Referrals: Nitin Coronel DO [Physician] - 2 weeks (We have notified your physician's clinic of the need for a follow-up appointment to be scheduled. If you have not heard from them within the next 2 business days, please call them directly. ) Neha Valverde, CARE TRANSITION COORDINATOR [Primary Care Provider] - 7-10 days (We have notified your physician's clinic of the need for a follow-up appointment to be scheduled. If you have not heard from them within the next 2 business days, please call them directly. ) Patient Instructions: Sucralfate (By mouth), Omeprazole (By mouth), GI Discharge Instructions, Opioid Safety Discharge Attestations Time Spent in Discharge Care*: greater than 30 min Quality Metrics Clinical Quality Measures [ No reported AMI, CVA or VTE this stay] Coding Level of Care Code Acute Code for Chg Fwd Diagnoses UGIB (upper gastrointestinal bleed) K92.2 Symptomatic anemia D64.9 Gastroesophageal reflux disease without esophagitis K21.9 Esophagitis presence: without esophagitis Panlobular emphysema J43.1 COPD type: emphysema Emphysema type: panlobular Nicotine dependence, cigarettes, with unspecified nicotine-induced disorders F17.219
--- NOTE | 2023-12-14 11:17 | P.CONIM_ITS ---
Providers/Reason For Consult 2 Consulting Physician/Specialty*: Dr. Nitin Coronel, DO/General surgery Reason for Consult*: Melena, anemia Attending Physician: Geronimo Modi MD Primary Care Provider: Neha Valverde NP History of Present Illness History of Present Illness Flor Du is a 63 year old female who presented to the hospital with weakness and some dyspnea on exertion. She reports that she has been having dark/black stools intermittently for the last 12 months. Her hemoglobin is found to be 7 and she was transfused 2 units PRBCs. She denies any abdominal pain, nausea, emesis, diarrhea, constipation, hematochezia. Review of Systems 2 General: Reports: 10 or more systems reviewed and unremarkable except in HPI and below Medications/Allergies Home Medications Medication Instructions Recorded Confirmed Last Taken Type nitroglycerin 0.4 mg sublingual 0.4 mg sublingual Q5M PRN chest 05/26/22 12/13/23 Unknown Rx tablet (Nitrostat) pain 6 weeks #30 tabs aspirin 81 mg tablet,delayed 81 mg PO QAM 10/10/22 12/13/23 12/12/23 History release (Adult Aspirin Regimen) tizanidine 4 mg tablet 4 mg PO Q8H PRN muscle spasticity 08/15/23 12/13/23 Unknown Rx #20 tabs metolazone 5 mg tablet 5 mg PO DAILY #30 tabs 10/05/23 12/13/23 Unknown Rx Auto titrating CPAP set to 6-14 #1 ea 12/07/23 12/13/23 Unknown Rx with mask and tubing potassium chloride 20 mEq 40 meq (2 x 20 mEq) PO BID #56 tabs 12/07/23 12/13/23 12/12/23 Rx tablet,extended release(part/cryst) spironolactone 25 mg tablet 25 mg PO DAILY #14 tabs 12/07/23 12/13/23 Unknown Rx albuterol sulfate 90 mcg/actuation 2 puff inhalation Q6H PRN 12/13/23 12/13/23 Unknown History aerosol inhaler Shortness Of Breath fluticasone fur. 100 mcg-umeclid 1 inh inhalation DAILY 12/13/23 12/13/23 12/12/23 History 62.5 mcg-vilant 25 mcg inhalat.powder (Trelegy Ellipta) furosemide 40 mg tablet 40 mg PO QAM 12/13/23 12/13/23 Unknown History gabapentin 300 mg capsule 300 mg PO TID 12/13/23 12/13/23 12/12/23 History levothyroxine 50 mcg tablet 50 mcg PO DAILY 12/13/23 12/13/23 12/12/23 History omeprazole 40 mg capsule,delayed 40 mg PO DAILY 12/13/23 12/13/23 12/12/23 History release Allergies Allergy/AdvReac Type Severity Reaction Status Date / Time No Known Allergies Allergy Verified 12/12/23 09:17 Current Medications Generic Name Dose Route Start Last Admin Trade Name Freq PRN Reason Stop Dose Admin Acetaminophen 500 mg 12/13/23 14:46 12/13/23 22:00 Acetaminophen 500 Mg Tablet PO 500 mg Q4H PRN Administration fever Albuterol/Ipratropium 3 ml 12/13/23 14:46 12/14/23 08:06 Ipratropium-Albuterol 3 Ml Neb INHALATION 3 ml Q6H PRN Administration SHORTNESS OF BREATH Furosemide 40 mg 12/14/23 09:00 12/14/23 08:41 Furosemide 10 Mg/Ml Sdv 4ml IVP 40 mg DAILY JOSE ANTONIO Administration Levothyroxine Sodium 50 mcg 12/14/23 09:00 12/14/23 08:40 Levothyroxine 50 Mcg Tablet PO 50 mcg DAILY JOSE ANTONIO Administration Nicotine 1 patch 12/13/23 14:46 12/13/23 14:51 Nicotine 21 Mg Patch TRANSDERMA 1 patch Q48H JOSE ANTONIO Administration Pantoprazole Sodium 40 mg 12/13/23 18:00 12/14/23 08:40 Pantoprazole 40 Mg Sdv IVP 40 mg BID JOSE ANTONIO Administration Sucralfate 1 gm 12/13/23 15:00 12/14/23 08:40 Sucralfate 1 Gm/10 Ml Oral Liq Udc PO 1 gm TID JOSE ANTONIO Administration PFSH Acute 2 PFSH: Medical History Cervical radiculopathy Hypokalemia CAD (coronary artery disease) Enrolled in chronic care management COPD (chronic obstructive pulmonary disease) Hypothyroid ASHD (arteriosclerotic heart disease) GERD (gastroesophageal reflux disease) Surgical History History of cholecystectomy H/O: hysterectomy History of colon surgery Colon resection for polyposis, no history of colon cancer History of neck surgery History of foot surgery Family History Mother CAD (coronary artery disease) [place] x 2 Chronic kidney disease (CKD) Cancer Diabetes Stroke Father CAD (coronary artery disease) [place] x 3 Dementia Diabetes Brother Cancer Lung disease Brother Cancer Lung disease Daughter Cancer Denies family history of Clotting disorder Suicide Anesthesia complication Bleeding disorder Social History Smoking and tobacco/nicotine status: never used tobacco/nicotine Alcohol intake: never Substance/Drug Use: current Other substance/drug use details: Gummies Adopted: No service: No Current occupational exposures/hazards: No Vitals/I&O/Wt Last Vital Signs Temp 97.6 F 12/14/23 08:02 Pulse 72 12/14/23 08:13 Resp 18 12/14/23 08:06 BP 129/97 12/14/23 08:02 Pulse Ox 97 12/14/23 08:06 O2 Del Method Room Air 12/14/23 08:06 12/13/23 12/14/23 12/14/23 22:59 06:59 14:59 Intake Total 710 / 1210 Output Total 300 / 300 Balance 410 / 910 Weight last 48 hrs Weight 212 lb 6 oz Weight 222 lb 4 oz Weight 215 lb Physical Exam 2 Narrative: General : Patient is well developed , no acute distress, oriented x3 Head : Normal cephalic, a-traumatic. Ears : Pinnae and external canal are normal. Hearing is normal. Eyes : PERRLA, Sclera and injection are normal. No conjunctival discharge. Nose : Mucous membranes are without erythema. Throat : buccal mucosa is normal, gums are without significant recession or hypertrophy. Lungs : Equal chest rise bilaterally, no use of accessory muscles, trachea is midline. Cor : Rate and rhythm are normal. Abdomen : Soft, ND, NT, no g/r/m Extremities : No edema, no cyanosis or clubbing, dorsalis pedis pulses are present bilaterally, non-tender to palpation of calves. Upper extremities are normal bilaterally. Back : non-tender to palpation, no CVA tenderness. Neuro : CN II - XII intact, Upper and lower extremities have equal and full strength Data 12/14/23 03:35 12/14/23 03:35 A&P Assessment and plan (1) UGIB (upper gastrointestinal bleed): (2) Symptomatic anemia: Plan EGD The risks and benefits of the procedure, including bleeding, infection, intestinal perforation requiring surgery, missed lesion were explained to the patient. The patient is understanding of the risks and wishes to proceed. Coding Level of Care Code 19386 Diagnoses UGIB (upper gastrointestinal bleed) K92.2 Symptomatic anemia D64.9
--- NOTE | 2023-12-14 11:43 | ANES.PREANE2 ---
Pre-Anesthetic Assessment Height/Weight: Height 1.57 m Weight 96.332 kg Temp Pulse Resp BP Pulse Ox O2 Del Method 97.6 F 72 18 129/97 97 Room Air 12/14/23 08:02 12/14/23 08:13 12/14/23 08:06 12/14/23 08:02 12/14/23 08:06 12/14/23 08:06 Operation Date: 12/14/23 12:25 Proposed Procedures p EGD(Not Applicable) - Nitin Coronel DO Familial anesthetic complications: none Last intake: meal- 1800 jello 12/13/23 water 2300 12/13/23 Social Tobacco (1 ppd.) and No alcohol Cannibas use smoked last monday. Exam alert, oriented x 3 and regular rate & rhythm inspiratory wheezing. albuterol ordered. Airway Submandibular: within normal limits Cervical ROM: within normal limits Mallampati: Class II Dentition: false (upper plate) History/ROS No significant history except as noted Pulmonary Chronic Obstructive Pulmonary Disease, Sleep Apnea (getting fit for CPAP next week.) and Shortness of Breath CV/HEM Anemia, Coronary Artery Disease and Congestive Heart Failure ECHO 03/19 Normal left ventricular size and systolic function, EF 67 %. No regional wall motion abnormalities. Normal chamber sizes. No significant valvular lesions. No intracardiac masses. No pericardial effusion. No similar previous studies are available for comparison Stress test negative at that time. None reported Hepatic None reported GI Gastroesophageal Reflux Disease Passing bright red blood in stool over 24 hours since episode reports no current bleeding. Metabolic Thyroid Disease Musc/sk Lower Back Pain Neuropsych Anxiety Anesthetic Plan ASA status: 3 Anesthesia: MAC Other: Patient states she has been having black stools for 6 months or more and just didn't want to deal with it . Previous colectomy. Medications/Allergies Home Medications Medication Instructions Recorded Confirmed Last Taken Type nitroglycerin 0.4 mg sublingual 0.4 mg sublingual Q5M PRN chest 05/26/22 12/13/23 Unknown Rx tablet (Nitrostat) pain 6 weeks #30 tabs aspirin 81 mg tablet,delayed 81 mg PO QAM 10/10/22 12/13/23 12/12/23 History release (Adult Aspirin Regimen) tizanidine 4 mg tablet 4 mg PO Q8H PRN muscle spasticity 08/15/23 12/13/23 Unknown Rx #20 tabs metolazone 5 mg tablet 5 mg PO DAILY #30 tabs 10/05/23 12/13/23 Unknown Rx Auto titrating CPAP set to 6-14 #1 ea 12/07/23 12/13/23 Unknown Rx with mask and tubing potassium chloride 20 mEq 40 meq (2 x 20 mEq) PO BID #56 tabs 12/07/23 12/13/23 12/12/23 Rx tablet,extended release(part/cryst) spironolactone 25 mg tablet 25 mg PO DAILY #14 tabs 12/07/23 12/13/23 Unknown Rx albuterol sulfate 90 mcg/actuation 2 puff inhalation Q6H PRN 12/13/23 12/13/23 Unknown History aerosol inhaler Shortness Of Breath fluticasone fur. 100 mcg-umeclid 1 inh inhalation DAILY 12/13/23 12/13/23 12/12/23 History 62.5 mcg-vilant 25 mcg inhalat.powder (Trelegy Ellipta) furosemide 40 mg tablet 40 mg PO QAM 12/13/23 12/13/23 Unknown History gabapentin 300 mg capsule 300 mg PO TID 12/13/23 12/13/23 12/12/23 History levothyroxine 50 mcg tablet 50 mcg PO DAILY 12/13/23 12/13/23 12/12/23 History omeprazole 40 mg capsule,delayed 40 mg PO DAILY 12/13/23 12/13/23 12/12/23 History release Allergies Allergy/AdvReac Type Severity Reaction Status Date / Time No Known Allergies Allergy Verified 12/12/23 09:17 Current Medications Generic Name Dose Route Start Last Admin Trade Name Freq PRN Reason Stop Dose Admin Acetaminophen 500 mg 12/13/23 14:46 12/13/23 22:00 Acetaminophen 500 Mg Tablet PO 500 mg Q4H PRN Administration fever Albuterol/Ipratropium 3 ml 12/13/23 14:46 12/14/23 08:06 Ipratropium-Albuterol 3 Ml Neb INHALATION 3 ml Q6H PRN Administration SHORTNESS OF BREATH Furosemide 40 mg 12/14/23 09:00 12/14/23 08:41 Furosemide 10 Mg/Ml Sdv 4ml IVP 40 mg DAILY JOSE ANTONIO Administration Levothyroxine Sodium 50 mcg 12/14/23 09:00 12/14/23 08:40 Levothyroxine 50 Mcg Tablet PO 50 mcg DAILY JOSE ANTONIO Administration Nicotine 1 patch 12/13/23 14:46 12/13/23 14:51 Nicotine 21 Mg Patch TRANSDERMA 1 patch Q48H JOSE ANTONIO Administration Pantoprazole Sodium 40 mg 12/13/23 18:00 12/14/23 08:40 Pantoprazole 40 Mg Sdv IVP 40 mg BID JOSE ANTONIO Administration Sucralfate 1 gm 12/13/23 15:00 12/14/23 08:40 Sucralfate 1 Gm/10 Ml Oral Liq Udc PO 1 gm TID JOSE ANTONIO Administration PFSH Anesthesia Medical History Cervical radiculopathy Hypokalemia CAD (coronary artery disease) Enrolled in chronic care management COPD (chronic obstructive pulmonary disease) Hypothyroid ASHD (arteriosclerotic heart disease) GERD (gastroesophageal reflux disease) Surgical History History of cholecystectomy H/O: hysterectomy History of colon surgery Colon resection for polyposis, no history of colon cancer History of neck surgery History of foot surgery Family History Mother CAD (coronary artery disease) [place] x 2 Chronic kidney disease (CKD) Cancer Diabetes Stroke Father CAD (coronary artery disease) PCI x 3 Dementia Diabetes Brother Cancer Lung disease Brother Cancer Lung disease Daughter Cancer Denies family history of Clotting disorder Suicide Anesthesia complication Bleeding disorder Social History Smoking and tobacco/nicotine status: never used tobacco/nicotine Alcohol intake: never Substance/Drug Use: current Other substance/drug use details: Gummileatha Adopted: No service: No Current occupational exposures/hazards: No Data Anesthesia 12/14/23 03:35 12/14/23 03:35 Short CBC 12/13/23 12/13/23 12/13/23 Range/Units 09:53 11:44 17:58 WBC 9.70 9.01 7.84 (3.29-11.43) 10^3/uL Hgb 7.80 L 7.10 L 9.20 L (11.27-16.99) g/dL Hct 27.4 L 25.1 L 31.8 L (36-47) % MCV 73.5 L 73.4 L 71.8 L (85-98) fl Plt Count 501 H 419 H 485 H (157-399) 10^3/cmm Neut % (Auto) 64.3 69.2 84.9 % Neut # (Auto) 6.24 6.24 6.66 (1.8-7.7) 10^3/uL 12/14/23 Range/Units 03:35 WBC 5.08 (3.29-11.43) 10^3/uL Hgb 8.60 L (11.27-16.99) g/dL Hct 28.6 L (36-47) % MCV 70.1 L (85-98) fl Plt Count 448 H (157-399) 10^3/cmm Neut % (Auto) 64.5 % Neut # (Auto) 3.28 (1.8-7.7) 10^3/uL BMP 12/13/23 12/13/23 12/14/23 09:53 11:38 01:20 Sodium 139 138 137 Potassium 5.5 H 5.2 H 4.3 Chloride 107 108 H 104 Carbon Dioxide 18 L 20 L 18 L BUN 16 16 14 Creatinine 0.9 0.9 0.8 Glucose 104 103 126 H Calcium 9.1 8.4 L 8.8 12/14/23 03:35 Sodium 139 Potassium 4.2 Chloride 106 Carbon Dioxide 19 L BUN 14 Creatinine 0.8 Glucose 124 H Calcium 8.7 Cardiac Enzymes 12/13/23 12/13/23 12/13/23 Range/Units 09:53 11:38 16:08 Troponin T Baseline 11 H (0-10) ng/L Troponin T 120 Minute 10.68 H (0-10) ng/L Delta Troponin T -0.32 L (0-10) ABS# Troponin T Hi Sens 6Hr 14.09 H (0-10) ng/L Troponin T Hi Sens 6Hr Delta 3.09 (0-12) ng/L Liver Function 12/13/23 Range/Units 09:53 Total Bilirubin 0.2 (0.15-1.2) mg/dL AST 26 (0-32) U/L ALT 15 (0-33) U/L Alkaline Phosphatase 125 H (35-105) U/L Albumin 3.9 (3.5-5.2) g/dL Blood Bank 12/13/23 12:08 Blood Type A Positive Rho(D) Type Rh positive Antibody Screen Negative Coags 12/14/23 03:35 C-Reactive Protein 4.3 ABG 12/13/23 10:23 Specimen Type Arterial Sample Site Radial, left ABG pH 7.41 ABG pCO2 31.1 L ABG pO2 78.7 L ABG PO2/FiO2 Ratio 374 ABG HCO3 19.7 L ABG O2 Saturation 96.6 ABG Base Excess -4.4 L A-a O2 Gradient 4.1 L O2 Delivery Device Room air FiO2 21.0 Cardiac Studies: Echocardiogram 03/15/22 Sestamibi Stress Test (Cardiology) 03/15/22
[2023-12-14] MEDS: sodium chloride 0.9% 1,000 ML 30 ML IV (11:47)
--- NOTE | 2023-12-14 12:55 | ANE.PACU2 ---
Inpatient post-anesthesia follow up: Airway intact: Yes Vital signs: Temperature 97 F Pulse Rate 72 Respiratory Rate 18 Blood Pressure 105/58 Pulse Oximetry 94 Oxygen Delivery Me thod Room Air Oxygen Flow Rate 2 Fraction of Inspir ed Oxygen Hydration adequate: Yes Nausea and vomiting: No Pain level: 1 Mental status: Baseline
== END 2023-12-14 13:14 | disposition home or self-care (01) ==
LOC: ER 11:59 → MEDSURG 13:38
PROVIDERS: Internal Medicine; Surgery; Admitting Provider Internal Medicine; Emergency Provider Family Medicine; Visit Provider Internal Medicine
PROC: 0DJ08ZZ Inspection of Upper Intestinal Tract, Via Natural or Artificial Opening Endoscopic (ICD-10-PCS; CPT 43235; principal; 2023-12-14 12:25)
DX: K92.2 Gastrointestinal hemorrhage, unspecified (principal); D64.9 Anemia, unspecified; K21.9 Gastro-esophageal reflux disease without esophagitis; J43.1 Panlobular emphysema; F17.219 Nicotine dependence, cigarettes, with unspecified nicotine-induced disorders; I25.10 Atherosclerotic heart disease of native coronary artery without angina pectoris; E03.9 Hypothyroidism, unspecified; Z79.82 Long term (current) use of aspirin; K44.9 Diaphragmatic hernia without obstruction or gangrene; I50.9 Heart failure, unspecified
CPT/HCPCS: 36415; 36430; 36600; 43239; 71045; 80048; 80051; 80053; 80306; 82330; 82607; 82728; 82805; 83036; 83540; 83550; 83735; 84443; 84484; 85025; 86140; 86850; 86900; 86920; 87070; 87205; 88305; 93005; 93971; 94640; 96372; 96374; 96375; 96376; 99285; G0378; J1100; J1940; J2470; J2704; J7030; J7040; P9016

== ENCOUNTER → 2024-01-22 11:09 | Outpatient (BNVA) | payer MEDICARE, MEDICAID, SELFPAY | PROVIDERS: Visit Provider Surgery | DX: K92.1 Melena (principal) | CPT/HCPCS: 91111; 99214 ==

== ENCOUNTER → 2024-02-08 10:28 | Outpatient (BNVA) | payer MEDICARE, MEDICAID, SELFPAY | PROVIDERS: Visit Provider Surgery | DX: Z09 Encounter for follow-up examination after completed treatment for conditions other than malignant neoplasm (principal); K92.1 Melena | CPT/HCPCS: 99214 ==

== ENCOUNTER → 2024-02-19 14:48 | Outpatient (BNVA) | payer MEDICARE, MEDICAID, SELFPAY | PROVIDERS: Visit Provider Surgery | DX: K92.1 Melena (principal); Z80.0 Family history of malignant neoplasm of digestive organs; K59.04 Chronic idiopathic constipation | CPT/HCPCS: 99212 ==

== ENCOUNTER 2024-02-28 09:11 | Day surgery (SDC) | payer MEDICARE, MEDICAID, SELFPAY ==
[2024-02-28 09:23] VITALS: BP 145/87; PULSE 76; RESP 18; TEMP 36.2; O2SAT 97; BMI 40.2
[2024-02-28] MEDS: sodium chloride 0.9% 1,000 ML 30 ML IV (10:00)
--- NOTE | 2024-02-28 10:19 | ANES.PREANE2 ---
Pre-Anesthetic Assessment Height/Weight: Height 5 ft 2 in Weight 220 lb Temp Pulse Resp BP Pulse Ox O2 Del Method 97.2 F L 76 18 145/87 97 Room Air 02/28/24 09:23 02/28/24 09:23 02/28/24 09:23 02/28/24 09:23 02/28/24 09:23 02/28/24 09:23 Preop Diagnosis: Chronic constipation Operation Date: 02/28/24 10:30 Proposed Procedures p Colonoscopy / 68331,g0105,k92.2(Not Applicable) - Nitin Coronel, DO Was Beta Nick taken within 24 hours: N/A Was Clonidine taken within 24 hours: N/A Last intake: Intake Last Liquid Date 02/27/24 Last Liquid Time 22:00 Last Solid Date 02/26/24 Last Solid Time 20:00 Social Tobacco and No alcohol Exam alert, oriented x 3 and regular rate & rhythm Decreased breath sounds bilaterally Airway Submandibular: within normal limits Cervical ROM: within normal limits Mallampati: Class III Comments: Comments: Edentulous, lesion noted on tongue Anesthetic Plan ASA status: 3 Anesthesia: MAC Other: No prior issues with anesthesia Completed bowel prep History of hypothyroidism on Synthroid Denies any cardiac history but does take Lasix for swelling Labs 01/08/2024 reviewed and acceptable for surgery States she is able to perform ADLs Plan for MAC anesthetic Medications/Allergies Home Medications Medication Instructions Recorded Confirmed Last Taken Type nitroglycerin 0.4 mg sublingual 0.4 mg sublingual Q5M PRN chest 05/26/22 02/28/24 Unknown Rx tablet (Nitrostat) pain 6 weeks #30 tabs Auto titrating CPAP set to 6-14 #1 ea 12/07/23 02/28/24 Unknown Rx with mask and tubing potassium chloride 20 mEq 40 meq (2 x 20 mEq) PO BID #56 tabs 12/07/23 02/28/24 02/27/24 Rx tablet,extended release(part/cryst) fluticasone fur. 100 mcg-umeclid 1 inh inhalation DAILY 12/13/23 02/28/24 02/27/24 History 62.5 mcg-vilant 25 mcg inhalat.powder (Trelegy Ellipta) furosemide 40 mg tablet 40 mg PO QAM 12/13/23 02/28/24 02/23/24 History calcium-vitamins B6-B12-FA tablet 1 tab PO DAILY #100 tabs 12/14/23 02/28/24 02/27/24 Rx (Folic Acid-Vit B6-Vit B12 (Calcium) tablet) ferrous sulfate 325 mg (65 mg 325 mg PO DAILY #100 tabs 12/14/23 02/28/24 02/27/24 Rx iron) tablet (iron) albuterol sulfate 90 mcg/actuation See Rx Instructions .Route 12/21/23 02/28/24 02/27/24 Rx aerosol inhaler .COMPLEX #8.5 grams gabapentin 300 mg capsule See Rx Instructions .Route 12/26/23 02/28/24 02/27/24 Rx .COMPLEX #270 caps levothyroxine 50 mcg tablet See Rx Instructions .Route 12/26/23 02/28/24 02/27/24 Rx .COMPLEX #90 tabs omeprazole 40 mg capsule,delayed See Rx Instructions .Route 12/26/23 02/28/24 02/27/24 Rx release .COMPLEX #90 caps ondansetron 8 mg disintegrating 8 mg PO Q8H PRN nausea and 01/08/24 02/28/24 Unknown Rx tablet vomiting #20 tabs polyethylene glycol 3350 17 17 g PO DAILY #238 grams 01/08/24 02/28/24 02/27/24 Rx gram/dose oral powder (Miralax) linaclotide 145 mcg capsule 72 mcg (0.4966 x 145 mcg) PO DAILY 02/19/24 02/28/24 02/27/24 Rx (Linzess) 30 days #30 caps Allergies Allergy/AdvReac Type Severity Reaction Status Date / Time No Known Allergies Allergy Verified 02/28/24 09:26 [facility] Anesthesia Medical History Family history of Irizarry syndrome History of colon polyps GI bleed Acute GI bleeding Anemia Acute exacerbation of chronic obstructive pulmonary disease (COPD) Symptomatic anemia UGIB (upper gastrointestinal bleed) Nicotine dependence, cigarettes, with unspecified nicotine-induced disorders Cervical radiculopathy Hypokalemia CAD (coronary artery disease) Enrolled in chronic care management COPD (chronic obstructive pulmonary disease) Hypothyroid ASHD (arteriosclerotic heart disease) GERD (gastroesophageal reflux disease) Surgical History History of cholecystectomy H/O: hysterectomy History of colon surgery Colon resection for polyposis, no history of colon cancer History of neck surgery History of foot surgery Family History Mother CAD (coronary artery disease) ID x 2 Chronic kidney disease (CKD) Cancer Diabetes Stroke Father CAD (coronary artery disease) PCI x 3 Dementia Diabetes Brother Cancer Lung disease Brother Cancer Lung disease Daughter Cancer Denies family history of Clotting disorder Suicide Anesthesia complication Bleeding disorder Social History Smoking and tobacco/nicotine status: current every day tobacco/nicotine user cigarettes Packs smoked per day: 1 Years cigarettes smoked: 50 [ Other cigarette details: Started at age 11.] Quit status (tobacco/nicotine): has tried quititng Alcohol intake: never Substance/Drug Use: current Other substance/drug use details: Nephew has been slipping her meth in her coffee Adopted: No service: No Current occupational exposures/hazards: No Data Anesthesia Cardiac Studies: Echocardiogram 03/15/22 Sestamibi Stress Test (Cardiology) 03/15/22
--- NOTE | 2024-02-28 11:10 | W.PM.OPSUD ---
Surgery/Procedure H&P Update DATE OF PROCEDURE: February 28, 2024 DATE H&P PERFORMED: 02/08/24 H&P UPDATE INFORMATION: I have reviewed H&P completed within last 30 days, I have examined patient prior to procedure and No changes to prior documentation PREOP DIAGNOSIS: Chronic constipation PLANNED PROCEDURE: Operation Date: 02/28/24 10:30 Proposed Procedures p Colonoscopy / [id number],g0105,k92.2(Not Applicable) - Nitin Coronel DO
[2024-02-28 11:30] VITALS: BP 120/57; PULSE 63; RESP 18; TEMP 36.4; O2SAT 97
[2024-02-28 11:40] VITALS: BP 119/60; PULSE 57; RESP 18; O2SAT 99
[2024-02-28 11:51] VITALS: BP 121/63; PULSE 62; RESP 18; O2SAT 98
--- NOTE | 2024-02-28 11:53 | ANE.PACU2 ---
Inpatient post-anesthesia follow up: Airway intact: Yes Vital signs: Temperature 97.6 F Pulse Rate 62 Respiratory Rate 18 Blood Pressure 121/63 Pulse Oximetry 98 Oxygen Delivery Me thod Room Air Oxygen Flow Rate Fraction of Inspir ed Oxygen Hydration adequate: Yes Nausea and vomiting: No Pain level: 1 Mental status: Baseline
== END 2024-02-28 11:58 | disposition home or self-care (01) ==
PROVIDERS: Visit Provider Surgery
PROC: 0DJD8ZZ Inspection of Lower Intestinal Tract, Via Natural or Artificial Opening Endoscopic (ICD-10-PCS; CPT 45378; principal; 2024-02-28 10:30)
DX: K59.09 Other constipation (principal); K62.1 Rectal polyp; K64.8 Other hemorrhoids; K57.30 Diverticulosis of large intestine without perforation or abscess without bleeding; E03.9 Hypothyroidism, unspecified; I25.10 Atherosclerotic heart disease of native coronary artery without angina pectoris; K21.9 Gastro-esophageal reflux disease without esophagitis
CPT/HCPCS: 45385; 88305; J2704; J7030

== ENCOUNTER → 2024-03-15 11:23 | Outpatient (BNVA) | payer MEDICARE, MEDICAID, SELFPAY | PROVIDERS: Visit Provider Surgery | DX: Z09 Encounter for follow-up examination after completed treatment for conditions other than malignant neoplasm (principal); K59.04 Chronic idiopathic constipation; Z86.0100 Personal history of colon polyps, unspecified | CPT/HCPCS: 99214 ==

== ENCOUNTER 2025-01-31 08:39 | Outpatient (CLI) | payer OTHER, MEDICAID, SELFPAY ==
--- NOTE | 2025-01-31 08:48 | MM_ITS ---
WS: [id number] Bilateral screening 3D tomosynthesis digital mammogram, 01/31/2025 8:55 AM Clinical Data: SCREENING Comparison: 02/24/2022, 08/19/2021, 04/05/2011, 07/09/2009. Findings: No spiculated masses or clustered calcifications are seen. There are no secondary signs of carcinoma. MM/MM scr BI tomosynthesis [id number] Impression: Negative bilateral mammogram unchanged. Recommend annual screening mammograms. BIRADS: 1 - Negative. FOLLOW UP: 1 Year Follow-up DENSITY: There are scattered areas of fibroglandular density. The CAD truckload checker was used
--- NOTE | 2025-01-31 08:48 | CT_ITS ---
WS: [id number] LDCT LUNG CANCER SCREENING HISTORY: NICOTINE DEPENDENCE, CIGARETTES TECHNIQUE: Axial imaging performed from the apices to 1 cm below the costophrenic angles. Coronal and sagittal reformats are submitted with axial MIP series. All CT scans at [facility] use at least one of these dose optimization techniques: automated exposure control; mA and/or kV adjustment per patient size (includes targeted exams where dose is matched to clinical indication); or iterative reconstruction. DLP: 98.47 mGy.cm DIvol: Mean CTDIvol: 2.20 (mGy) COMPARISON: 08/30/2023 Diagnostic quality: Satisfactory Lungs: Lungs are moderately hyperinflated. There are numerous 2 to 5 mm pulmonary nodules identified bilaterally. Some of these nodules are pleural and subpleural bases. Other nodules are completely within the lung parenchyma. The largest nodule is 5 mm at the RIGHT lung base. These nodules are not increasing in size. No mass. Small amount of mucous secretion in the RIGHT main bronchus. Heart: Normal size heart with no pericardial effusion.. Mild coronary artery plaque. Other findings: Mild atherosclerosis aorta. Normal size aorta. Normal size pulmonary artery. No pathologically enlarged lymph nodes. Small hiatal hernia. There may be mild thickening of the LEFT adrenal gland. This thickening was also noted on 12/18/2022 CT. No adrenal mass. CT/CT lung screening [id number] IMPRESSION: LUNG-RADS: 2-Benign Appearance or Behavior FOLLOW UP: 12 Month: Continue annual screening with LDCT OTHER FINDINGS (S MODIFIER): None.
== END 2025-01-31 08:40 | disposition home or self-care (01) ==
LOC: RAD 08:40
PROVIDERS: Visit Provider Physician Assistant
DX: Z12.31 Encounter for screening mammogram for malignant neoplasm of breast (principal); Z12.2 Encounter for screening for malignant neoplasm of respiratory organs; F17.210 Nicotine dependence, cigarettes, uncomplicated; R92.323 Mammographic fibroglandular density, bilateral breasts; J98.4 Other disorders of lung; R91.8 Other nonspecific abnormal finding of lung field; K44.9 Diaphragmatic hernia without obstruction or gangrene
CPT/HCPCS: 71271; 77063; 77067